=== PATIENT | female | born 1990 | race Caucasian/White ===

== ENCOUNTER 2022-05-24 00:29 | Emergency (ER) | payer OTHER ==
[2022-05-24 00:37] VITALS: TEMP 98.1
--- NOTE | 2022-05-24 04:35 | CT ---
EXAM: CT Head Without Intravenous Contrast CLINICAL HISTORY: ITS.REASON CT Reason: altered mental status TECHNIQUE: Axial computed tomography images of the head/brain without intravenous contrast. CTDI is 49.2 mGy and DLP is 1094.4 mGy-cm. This CT exam was performed using one or more of the following dose reduction techniques: automated exposure control, adjustment of the mA and/or kV according to patient size, and/or use of iterative reconstruction technique. COMPARISON: No relevant prior studies available. FINDINGS: Brain: Unremarkable. No hemorrhage. No significant white matter disease. No edema. Ventricles: Unremarkable. No ventriculomegaly. Bones/joints: Unremarkable. No acute fracture. Soft tissues: Unremarkable. Sinuses: Unremarkable as visualized. No acute sinusitis. Mastoid air cells: Unremarkable as visualized. No mastoid effusion. IMPRESSION: No acute intracranial process identified.
--- NOTE | 2022-05-24 04:52 | ED ---
General Adult HPI - General Chief complaint: Recheck/Abnormal Lab/Rx Stated complaint: Possible Overdose Time Seen by Provider: 05/24/22 00:32 Source: patient, EMS Mode of arrival: EMS Limitations: no limitations - History of Present Illness Initial comments: This patient is a 31-year-old woman sent here from [facility] to have evaluation of mental status change. Patient reportedly had gone to her room and then was seen by another client to be rolling on the floor and I was concerned she may have taken something. When I interview the patient, she denies any unauthorized medications. Patient denies symptoms but is very somnolent. -: hour(s) Severity scale (1-10): 0 Improves with: none Worsens with: none Treatments Prior to Arrival: none - Related Data Allergies Allergy/AdvReac Type Severity Reaction Status Date / Time No Known Allergies Allergy Verified 05/24/22 00:31 Review of Systems ROS Statement: Those systems with pertinent positive or pertinent negative responses have been documented in the HPI. ROS Other: All systems not noted in ROS Statement are negative. Constitutional: Denies: fever Eyes: Denies: eye pain Respiratory: Denies: cough, dyspnea Cardiovascular: Denies: chest pain, syncope Gastrointestinal: Denies: abdominal pain, vomiting, diarrhea Genitourinary: Denies: dysuria, hematuria Musculoskeletal: Denies: back pain Skin: Denies: rash Neurological: Reports: as per HPI, confusion. Denies: headache, weakness Past Medical History Additional Past Medical History / Comment(s): "tetanus" History of Any Multi-Drug Resistant Organisms: MRSA Date of last positivie culture/infection: august 2021 MDRO Source:: nose Past Psychological History: No Psychological Hx Reported Smoking Status: Current every day smoker Past Alcohol Use History: Occasional Past Drug Use History: Methamphetamine General Exam Limitations: no limitations General appearance: alert, in no apparent distress Head exam: Present: atraumatic, normocephalic Eye exam: Present: normal appearance Neck exam: Present: normal inspection Respiratory exam: Present: normal lung sounds bilaterally. Absent: respiratory distress, wheezes, rales, rhonchi, stridor Cardiovascular Exam: Present: regular rate, normal rhythm, normal heart sounds. Absent: systolic murmur, diastolic murmur, rubs, gallop GI/Abdominal exam: Present: soft Neurological exam: Present: other (Somnolent but arousable) Skin exam: Present: warm, dry, intact, normal color. Absent: rash Course Vital Signs 05/24/22 05/24/22 05/24/22 00:31 03:36 06:02 Temperature 98.1 F Pulse Rate 85 76 72 Respiratory 16 14 16 Rate Blood Pressure 115/75 118/76 112/68 O2 Sat by Pulse 98 98 98 Oximetry Disposition Clinical Impression: Altered mental status Disposition: HOME SELF-CARE Condition: Good Instructions (If sedation given, give patient instructions): Adverse Drug Reaction (ED) Is patient prescribed a controlled substance at d/c from ED?: No Referrals: None,Stated [Primary Care Provider] - 1-2 days
[2022-05-24 10:22] VITALS: BP 127/86; PULSE 68; RESP 18
[2022-05-24 12:53] LABS: Urine Alcohol Negative (Negative); Urine Barbiturate Negative (Negative); Urine Cocaine Negative (Negative); Urine Methadone Negative (Negative); Urine Opiates Negative (Negative); Urine Phencyclidine Negative (Negative)
== END 2022-05-24 10:22 | disposition home or self-care (01) ==
LOC: EC 00:29
DX: R41.82 Altered mental status, unspecified (principal); F17.200 Nicotine dependence, unspecified, uncomplicated
CPT/HCPCS: 70450; 80306; 99285

== ENCOUNTER 2022-06-03 22:25 | Emergency (ER) | payer OTHER ==
[2022-06-03 22:33] VITALS: TEMP 98.1
--- NOTE | 2022-06-04 00:12 | ED ---
Dizziness HPI - General Chief Complaint: Dizziness Stated Complaint: Fatigue, Weakness, From [place] Time Seen by Provider: 06/04/22 00:06 Source: patient, EMS Mode of arrival: EMS Limitations: no limitations - History of Present Illness Initial Comments: This patient is a 31-year-old woman sent here from [facility] with concern that she may have taken an overdose. The patient was noted to be very somnolent after the meal time there. When I interview the patient, she denies complaints. There was no injury. She is not having pain or dyspnea. MD Complaint: other -: hour(s) Timing: sudden onset History of Same: Yes History of Trauma: No Improves With: nothing Worsens With: nothing Associated Symptoms: other (Fatigue) - Related Data Previous Rx's Medication Instructions Recorded Nitrofurantoin Monohyd/M-Cryst 100 mg PO Q12HR #6 cap 06/04/22 [Macrobid] Allergies Allergy/AdvReac Type Severity Reaction Status Date / Time No Known Allergies Allergy Verified 06/03/22 22:33 Review of Systems ROS Statement: Those systems with pertinent positive or pertinent negative responses have been documented in the HPI. ROS Other: All systems not noted in ROS Statement are negative. Constitutional: Denies: fever, chills Eyes: Denies: vision change Respiratory: Denies: cough, dyspnea Cardiovascular: Denies: chest pain, palpitations, syncope Endocrine: Reports: fatigue Gastrointestinal: Denies: abdominal pain, nausea, vomiting Genitourinary: Denies: dysuria, hematuria Musculoskeletal: Denies: back pain Skin: Denies: rash Neurological: Denies: headache, weakness, numbness Past Medical History Additional Past Medical History / Comment(s): "tetanus" History of Any Multi-Drug Resistant Organisms: MRSA Date of last positivie culture/infection: august 2021 MDRO Source:: nose Past Surgical History: Cholecystectomy Past Psychological History: No Psychological Hx Reported Smoking Status: Current every day smoker Past Alcohol Use History: Occasional Past Drug Use History: Methamphetamine General Exam Limitations: no limitations General appearance: in no apparent distress, other (Patient is somnolent but pantera usable.) Head exam: Present: atraumatic, normocephalic Eye exam: Present: normal appearance, PERRL, EOMI. Absent: scleral icterus, conjunctival injection ENT exam: Present: mucous membranes dry Neck exam: Present: normal inspection, full ROM Respiratory exam: Present: normal lung sounds bilaterally. Absent: respiratory distress, wheezes, rales, rhonchi, stridor Cardiovascular Exam: Present: regular rate, normal rhythm, normal heart sounds. Absent: systolic murmur, diastolic murmur, rubs, gallop GI/Abdominal exam: Present: soft. Absent: distended, tenderness, guarding, rebound, rigid, mass Extremities exam: Present: normal inspection, normal capillary refill. Absent: pedal edema, calf tenderness Back exam: Present: normal inspection. Absent: CVA tenderness (R), CVA tenderness (L) Neurological exam: Present: altered, oriented X3, CN II-XII intact. Absent: motor sensory deficit Skin exam: Present: warm, dry, intact, normal color. Absent: rash Course Vital Signs 06/03/22 06/04/22 22:28 02:48 Temperature 98.1 F Pulse Rate 98 78 Respiratory 22 18 Rate Blood Pressure 111/68 112/70 O2 Sat by Pulse 98 97 Oximetry EKG Findings - EKG Results: EKG: interpreted by STACIA DAWKINS, sinus rhythm (Rate 95 bpm), normal axis, normal QRS, normal ST/T, no acute changes Medical Decision Making - Medical Decision Making Patient's 31-year-old woman sent here from [place] for evaluation. She is somnolent but arousable, no definite neurologic deficits. She is observed in emergency department and after sleeping she was alert and appropriately responsive, cleared to be discharged back. - Lab Data Result diagrams: 06/04/22 01:30 06/04/22 01:30 Lab Results 06/04/22 06/04/22 06/04/22 Range/Units 01:30 01:30 02:14 WBC 5.6 (3.8-10.6) k/uL RBC 3.91 (3.80-5.40) m/uL Hgb 13.0 (11.4-16.0) gm/dL Hct 38.1 (34.0-46.0) % MCV 97.4 (80.0-100.0) fL MCH 33.2 (25.0-35.0) pg MCHC 34.0 (31.0-37.0) g/dL RDW 12.6 (11.5-15.5) % Plt Count 268 (150-450) k/uL MPV 7.1 Neutrophils % 46 % Lymphocytes % 41 % Monocytes % 6 % Eosinophils % 4 % Basophils % 1 % Neutrophils # 2.6 (1.3-7.7) k/uL Lymphocytes # 2.3 (1.0-4.8) k/uL Monocytes # 0.3 (0-1.0) k/uL Eosinophils # 0.2 (0-0.7) k/uL Basophils # 0.1 (0-0.2) k/uL Sodium 136 L (137-145) mmol/L Potassium 4.4 (3.5-5.1) mmol/L Chloride 106 (98-107) mmol/L Carbon Dioxide 28 (22-30) mmol/L Anion Gap 2 mmol/L BUN 19 H (7-17) mg/dL Creatinine 0.65 (0.52-1.04) mg/dL Est GFR (CKD-EPI)AfAm >90 (>60 ml/min/1.73 sqM) Est GFR (CKD-EPI)NonAf >90 (>60 ml/min/1.73 sqM) Glucose 100 H (74-99) mg/dL Calcium 8.9 (8.4-10.2) mg/dL Total Bilirubin 0.4 (0.2-1.3) mg/dL AST 52 H (14-36) U/L ALT 47 H (4-34) U/L Alkaline Phosphatase 55 (38-126) U/L Total Protein 6.0 L (6.3-8.2) g/dL Albumin 3.6 (3.5-5.0) g/dL Urine Color Light Yellow Urine Appearance Clear (Clear) Urine pH 6.5 (5.0-8.0) Ur Specific Benton 1.009 (1.001-1.035) Urine Protein Negative (Negative) Urine Glucose (UA) Negative (Negative) Urine Ketones Negative (Negative) Urine Blood Negative (Negative) Urine Nitrite Positive H (Negative) Urine Bilirubin Negative (Negative) Urine Urobilinogen <2.0 (<2.0) mg/dL Ur Leukocyte Esterase Moderate H (Negative) Urine RBC 1 (0-5) /hpf Urine WBC 11 H (0-5) /hpf Ur Squamous Epith Cells 1 (0-4) /hpf Urine Bacteria Few H (None) /hpf Urine HCG, Qual (Not Detectd) Urine Opiates Screen Not Detected (NotDetected) Ur Oxycodone Screen Not Detected (NotDetected) Urine Methadone Screen Not Detected (NotDetected) Ur Propoxyphene Screen Not Detected (NotDetected) Ur Barbiturates Screen Not Detected (NotDetected) U Tricyclic Antidepress Not Detected (NotDetected) Ur Phencyclidine Scrn Not Detected (NotDetected) Ur Amphetamines Screen Not Detected (NotDetected) U Methamphetamines Scrn Not Detected (NotDetected) U Benzodiazepines Scrn Not Detected (NotDetected) Urine Cocaine Screen Not Detected (NotDetected) U Marijuana (THC) Screen Not Detected (NotDetected) 06/04/22 Range/Units 02:14 WBC (3.8-10.6) k/uL RBC (3.80-5.40) m/uL Hgb (11.4-16.0) gm/dL Hct (34.0-46.0) % MCV (80.0-100.0) fL MCH (25.0-35.0) pg MCHC (31.0-37.0) g/dL RDW (11.5-15.5) % Plt Count (150-450) k/uL MPV Neutrophils % % Lymphocytes % % Monocytes % % Eosinophils % % Basophils % % Neutrophils # (1.3-7.7) k/uL Lymphocytes # (1.0-4.8) k/uL Monocytes # (0-1.0) k/uL Eosinophils # (0-0.7) k/uL Basophils # (0-0.2) k/uL Sodium (137-145) mmol/L Potassium (3.5-5.1) mmol/L Chloride (98-107) mmol/L Carbon Dioxide (22-30) mmol/L Anion Gap mmol/L BUN (7-17) mg/dL Creatinine (0.52-1.04) mg/dL Est GFR (CKD-EPI)AfAm (>60 ml/min/1.73 sqM) Est GFR (CKD-EPI)NonAf (>60 ml/min/1.73 sqM) Glucose (74-99) mg/dL Calcium (8.4-10.2) mg/dL Total Bilirubin (0.2-1.3) mg/dL AST (14-36) U/L ALT (4-34) U/L Alkaline Phosphatase (38-126) U/L Total Protein (6.3-8.2) g/dL Albumin (3.5-5.0) g/dL Urine Color Urine Appearance (Clear) Urine pH (5.0-8.0) Ur Specific Benton (1.001-1.035) Urine Protein (Negative) Urine Glucose (UA) (Negative) Urine Ketones (Negative) Urine Blood (Negative) Urine Nitrite (Negative) Urine Bilirubin (Negative) Urine Urobilinogen (<2.0) mg/dL Ur Leukocyte Esterase (Negative) Urine RBC (0-5) /hpf Urine WBC (0-5) /hpf Ur Squamous Epith Cells (0-4) /hpf Urine Bacteria (None) /hpf Urine HCG, Qual Not Detected (Not Detectd) Urine Opiates Screen (NotDetected) Ur Oxycodone Screen (NotDetected) Urine Methadone Screen (NotDetected) Ur Propoxyphene Screen (NotDetected) Ur Barbiturates Screen (NotDetected) U Tricyclic Antidepress (NotDetected) Ur Phencyclidine Scrn (NotDetected) Ur Amphetamines Screen (NotDetected) U Methamphetamines Scrn (NotDetected) U Benzodiazepines Scrn (NotDetected) Urine Cocaine Screen (NotDetected) U Marijuana (THC) Screen (NotDetected) Disposition Clinical Impression: Urinary tract infection, Altered mental status Disposition: HOME SELF-CARE Condition: Good Instructions (If sedation given, give patient instructions): Urinary Tract Infection in Women (ED) Prescriptions: Nitrofurantoin Monohyd/M-Cryst [Macrobid] 100 mg PO Q12HR #6 cap Is patient prescribed a controlled substance at d/c from ED?: No Referrals: None,Stated [Primary Care Provider] - 1-2 days
[2022-06-04 01:38] LABS: Basophils # (A) 0.1 k/uL (0-0.2); Basophils % (A) 1 %; Eosinophils # (A) 0.2 k/uL (0-0.7); Eosinophils % (A) 4 %; HCT 38.1 % (34.0-46.0); Lymphocytes # (A) 2.3 k/uL (1.0-4.8); Lymphocytes % (A) 41 %; MCH 33.2 pg (25.0-35.0); MCV 97.4 fL (80.0-100.0); Mean Platelet Volume 7.1; Monocytes # (A) 0.3 k/uL (0-1.0); Monocytes % (A) 6 %; Neutrophils # (A) 2.6 k/uL (1.3-7.7); Neutrophils % (A) 46 %; Platelet Count 268 k/uL (150-450); RBC 3.91 m/uL (3.80-5.40); RDW 12.6 % (11.5-15.5); WBC 5.6 k/uL (3.8-10.6)
[2022-06-04 01:58] LABS: ALT 47 U/L (4-34); AST 52 U/L (14-36); African American GFR (CKD) >90 (>60 ml/min/1.73 sqM); Albumin 3.6 g/dL (3.5-5.0); Alkaline Phosphatase 55 U/L (38-126); Anion Gap 2 mmol/L; Blood Urea Nitrogen 19 mg/dL (7-17); Calcium 8.9 mg/dL (8.4-10.2); Carbon Dioxide 28 mmol/L (22-30); Chloride 106 mmol/L (98-107); Glucose 100 mg/dL (74-99); Non-African American GFR(CKD) >90 (>60 ml/min/1.73 sqM); Potassium 4.4 mmol/L (3.5-5.1); Sodium 136 mmol/L (137-145); Total Bilirubin 0.4 mg/dL (0.2-1.3)
[2022-06-04 02:49] VITALS: BP 112/70; PULSE 78; RESP 18
[2022-06-04 02:51] LABS: Appearance,Urine Clear (Clear); Bacteria,Urine Few /hpf; Bilirubin,Urine Negative (Negative); Blood,Urine Negative (Negative); Color,Urine Light Yellow; Glucose,Urine (UA) Negative (Negative); Ketones,Urine Negative (Negative); Leukocyte Esterase,Urine Moderate (Negative); Nitrite,Urine Positive (Negative); PH, Urine 6.5 (5.0-8.0); Protein,Urine Negative (Negative); RBC,Urine 1 /hpf (0-5); Specific Gravity,Urine 1.009 (1.001-1.035); Squamous Epithelial Cell,Urine 1 /hpf (0-4); Urobilinogen,Urine <2.0 mg/dL (<2.0); WBC,Urine 11 /hpf (0-5)
[2022-06-04 02:52] LABS: Amphetamine Screen,Urine Not Detected (NotDetected); Barbiturate Screen,Urine Not Detected (NotDetected); Benzodiazepines Screen,Urine Not Detected (NotDetected); Cocaine Screen,Urine Not Detected (NotDetected); Methadone Screen, Urine Not Detected (NotDetected); Opiate Screen,Urine Not Detected (NotDetected); Oxycodone Screen, Urine Not Detected (NotDetected); Phencyclidine Screen,Urine Not Detected (NotDetected); Tricyclic Antidepressant,Urine Not Detected (NotDetected); Urn Cannabinoid Scrn Not Detected (NotDetected)
[2022-06-04] MEDS ORDERED: NITROFURANTOIN MONOHYD/M-CRYST 100 MG CAP PO STA (04:24)
== END 2022-06-04 06:18 | disposition home or self-care (01) ==
LOC: EC 22:25
DX: N39.0 Urinary tract infection, site not specified (principal); R41.82 Altered mental status, unspecified; F17.200 Nicotine dependence, unspecified, uncomplicated
CPT/HCPCS: 36415; 80053; 80306; 81001; 81025; 85025; 93005; 99285

== ENCOUNTER → 2022-11-25 | Outpatient (CLI) | payer OTHER ==
--- NOTE | 2022-11-25 14:23 | XR ---
EXAMINATION TYPE: XR wrist complete RT DATE OF EXAM: 11/25/2022 COMPARISON: None HISTORY: Pain and sprain felt pop TECHNIQUE: 4 view right wrist FINDINGS: No acute fracture or dislocation is evident. Joint spaces are preserved. Soft tissues are n ormal. If there is pain at the anatomic snuff box, nuclear medicine bone scan could be performed for additio nal evaluation. Follow up exams can be performed 7-10 days from acute trauma for continued pain. IMPRESSION: 1. No acute osseous abnormality right wrist
--- NOTE | 2022-11-25 14:24 | XR ---
EXAMINATION TYPE: XR hand complete RT DATE OF EXAM: 11/25/2022 COMPARISON: None HISTORY: Sprain, pain TECHNIQUE: 3 view right hand FINDINGS: No acute fracture or dislocation is evident. Joint spaces are preserved. Soft tissues are n ormal. Follow up exams can be performed 7-10 days from acute trauma for continued pain. IMPRESSION: 1. No acute osseous abnormality right hand
== END | disposition home or self-care (01) ==
LOC: RADXRMAIN 14:03
PROVIDERS: ATTEND Emergency Medicine
DX: S63.501A Unspecified sprain of right wrist, initial encounter (principal); S63.8X1A Sprain of other part of right wrist and hand, initial encounter

== ENCOUNTER → 2022-12-02 | Outpatient (CLI) | payer OTHER ==
--- NOTE | 2022-12-02 12:24 | XR ---
EXAMINATION TYPE: XR hand complete RT, XR wrist complete RT DATE OF EXAM: 12/02/2022 12:08 PM INDICATION: Patient age:Female; 32 years old; Reason for study: S63.501D sprain right wrist; COMPARISON: None TECHNIQUE: Frontal, lateral and oblique views of the right hand and wrist were obtained. Additional n avicular view of the wrist. FINDINGS: Normal alignment of the visualized joints. No acute osseous pathology is identified. No e vidence of soft tissue swelling. IMPRESSION: No acute osseous pathology.
== END | disposition home or self-care (01) ==
LOC: RADXRMAIN 11:49
PROVIDERS: ATTEND Emergency Medicine
DX: S63.501D Unspecified sprain of right wrist, subsequent encounter (principal); R20.9 Unspecified disturbances of skin sensation

== ENCOUNTER → 2022-12-21 | Outpatient (CLI) | payer OTHER ==
--- NOTE | 2022-12-23 03:16 | MR ---
EXAMINATION TYPE: MR wrist RT wo con DATE OF EXAM: 12/21/2022 COMPARISON: None HISTORY: Rt wrist pain, sprain Multiplanar multiecho imaging of the right wrist performed with no contrast. On the T1 images there is abnormal decreased signal throughout most of the lunate bone. This has kristen esponding increased signal on the T2 image. No fracture line seen. There is some mild increased fluid signal in the distal scaphoid bone adjacent to the scaphoid trapezium joint. There is mild soft tiss ue edema on the dorsum of the carpus. The flexor and extensor tendons are intact. Distal radius and u sterile preparation technician appear intact. There is mild narrowing of the radiocarpal joint space. There is mild subcutaneous edema on the anterior aspect of the carpus. The triangular cartilage appears intact. There is mild i ncreased joint fluid in the carpus which is more noticeable at the fourth and fifth carpometacarpal j oints. This is consistent with some degree of synovitis. IMPRESSION: There is diffuse edema in the lunate bone that could relate to avascular necrosis or significant bon e bruise. There is some edema in the distal scaphoid bone consistent with bone bruise and osteoarthri tis. Minimal bone edema seen in the proximal capitate also consistent with arthritic disease. No frac ture seen. Soft tissue edema on the anterior posterior aspect of the carpus.
== END | disposition home or self-care (01) ==
LOC: RADMRIMAIN 06:03
PROVIDERS: ATTEND Emergency Medicine
DX: S63.501D Unspecified sprain of right wrist, subsequent encounter (principal); R60.0 Localized edema; M79.641 Pain in right hand; R20.9 Unspecified disturbances of skin sensation

== ENCOUNTER → 2023-03-17 | Outpatient (CLI) | payer OTHER ==
--- NOTE | 2023-03-17 11:00 | XR ---
EXAMINATION TYPE: XR Hip Complete RT DATE OF EXAM: 03/17/2023 10:55 AM INDICATION: Patient age:Female; 32 years old; Reason for study: S30.0XXD R hip pain;. COMPARISON: None. TECHNIQUE: The right hip was examined in the frontal and lateral projections and a AP pelvis. FINDINGS: No evidence for acute process, joint dislocation or significant soft tissue swelling. IMPRESSION: No acute process.
== END | disposition home or self-care (01) ==
LOC: RADXRMAIN 10:20
PROVIDERS: ATTEND Emergency Medicine
DX: S30.0XXD Contusion of lower back and pelvis, subsequent encounter (principal); Y99.9 Unspecified external cause status
CPT/HCPCS: 73502

== ENCOUNTER 2023-04-01 21:35 | Emergency (ER) | payer BC, OTHER ==
[2023-04-01] MEDS ORDERED: SODIUM CHLORIDE 0.9% 1,000 ML IV STA (23:16)
[2023-04-01] MEDS ORDERED: ONDANSETRON 4 MG/2 ML VIAL IVP STA (23:16)
[2023-04-01] MEDS ORDERED: KETOROLAC 15 MG/ML 1 ML VIAL IVP STA (23:23)
[2023-04-01 23:54] LABS: ALT 17 U/L (4-34); AST 22 U/L (14-36); African American GFR (CKD) >90 (>60 ml/min/1.73 sqM); Albumin 3.9 g/dL (3.5-5.0); Alkaline Phosphatase 66 U/L (38-126); Anion Gap 10 mmol/L; Blood Urea Nitrogen 13 mg/dL (7-17); Calcium 8.2 mg/dL (8.4-10.2); Carbon Dioxide 22 mmol/L (22-30); Chloride 104 mmol/L (98-107); Glucose 124 mg/dL (74-99); Lipase 85 U/L (23-300); Magnesium 2.1 mg/dL (1.6-2.3); Non-African American GFR(CKD) >90 (>60 ml/min/1.73 sqM); Potassium 3.6 mmol/L (3.5-5.1); Sodium 136 mmol/L (137-145); Total Bilirubin 1.9 mg/dL (0.2-1.3); Total Protein 6.5 g/dL (6.3-8.2)
[2023-04-02 00:11] LABS: Basophils % (A) 0 %; Eosinophils # (A) 0.1 k/uL (0-0.7); Eosinophils % (A) 1 %; HCT 39.4 % (34.0-46.0); HGB 13.9 gm/dL (11.4-16.0); Lymphocytes # (A) 0.9 k/uL (1.0-4.8); Lymphocytes % (A) 22 %; MCH 31.9 pg (25.0-35.0); MCHC 35.2 g/dL (31.0-37.0); MCV 90.7 fL (80.0-100.0); Mean Platelet Volume 7.5; Monocytes # (A) 0.4 k/uL (0-1.0); Monocytes % (A) 8 %; Neutrophils # (A) 2.9 k/uL (1.3-7.7); Neutrophils % (A) 66 %; Platelet Count 247 k/uL (150-450); RBC 4.34 m/uL (3.80-5.40); RDW 12.2 % (11.5-15.5); WBC 4.4 k/uL (3.8-10.6)
--- NOTE | 2023-04-02 00:19 | CT ---
EXAM: CT Abdomen and Pelvis With Intravenous Contrast CLINICAL HISTORY: ITS.REASON CT Reason: LLQ pain TECHNIQUE: Axial computed tomography images of the abdomen and pelvis with intravenous contrast. CTDI is 17.3, 11.8 mGy and DLP is 1100, 453.8 mGy- cm. This CT exam was performed using one or more of the following dose reduction techniques: automated exposure control, adjustment of the mA and/or kV according to patient size, and/or use of iterative reconstruction technique. COMPARISON: No relevant prior studies available. FINDINGS: Lung bases: Unremarkable. No mass. No consolidation. ABDOMEN: Liver: Unremarkable. No mass. Gallbladder and bile ducts: Cholecystectomy. No ductal dilation. Pancreas: Unremarkable. No mass. No ductal dilation. Spleen: Mild splenomegaly. Adrenals: Unremarkable. No mass. Kidneys and ureters: Unremarkable. No solid mass. No hydronephrosis. Stomach and bowel: Some mildly thickened small bowel loops. No obstruction. PELVIS: Appendix: Normal appendix. Bladder: Unremarkable. No mass. Reproductive: Unremarkable as visualized. ABDOMEN and PELVIS: Intraperitoneal space: Unremarkable. No free air. No significant fluid collection. Bones/joints: No acute fracture. No dislocation. Soft tissues: Unremarkable. Vasculature: Unremarkable. No abdominal aortic aneurysm. Lymph nodes: Unremarkable. No enlarged lymph nodes. IMPRESSION: Some mildly thickened small bowel loops. May represent enteritis.
[2023-04-02] MEDS ORDERED: CALCIUM CARBONATE 500 MG CHEWABLE PO STA (00:27)
[2023-04-02] MEDS ORDERED: AMOXIC-POT CLAV 875-125MG 1 EACH TAB PO STA (00:30)
--- NOTE | 2023-04-02 00:34 | ED ---
General Adult HPI - General Chief complaint: Nausea/Vomiting/Diarrhea Stated complaint: Dehydrated Time Seen by Provider: 04/01/23 23:15 Source: patient Mode of arrival: ambulatory - History of Present Illness Initial comments: Patient is a 32-year-old female who presents the emergency department for diarrhea. Patient reports 10-15 episodes of diarrhea since last night, states it is very watery no blood. No history of C. diff. No recent antibiotic use or travel. She feels very dehydrated. Patient has pain in her left lower abdomen. She feels very nauseous nor vomiting. No fever or chills. No burning with urination, blood in urine, vaginal bleeding, vaginal discharge. Denies chance of . She denies alcohol and drug use. - Related Data Previous Rx's Medication Instructions Recorded Amoxic-Pot Clav 875-125Mg 1 tab PO BID 10 Days #20 tab 04/02/23 [Augmentin 875-125] Dicyclomine [Bentyl] 20 mg PO TID #30 tablet 04/02/23 Ondansetron Odt [Zofran Odt] 4 mg PO Q8HR PRN #10 tab 04/02/23 Allergies Allergy/AdvReac Type Severity Reaction Status Date / Time No Known Allergies Allergy Verified 04/01/23 21:41 Review of Systems ROS Statement: Those systems with pertinent positive or pertinent negative responses have been documented in the HPI. ROS Other: All systems not noted in ROS Statement are negative. Past Medical History Additional Past Medical History / Comment(s): "tetanus" History of Any Multi-Drug Resistant Organisms: MRSA Date of last positivie culture/infection: august 2021 MDRO Source:: nose Past Surgical History: Cholecystectomy Past Psychological History: No Psychological Hx Reported Smoking Status: Current every day smoker Past Alcohol Use History: Occasional Past Drug Use History: Methamphetamine General Exam General appearance: alert, in no apparent distress Eye exam: Present: normal appearance, PERRL, EOMI. Absent: scleral icterus, conjunctival injection, periorbital swelling ENT exam: Present: mucous membranes moist Respiratory exam: Present: normal lung sounds bilaterally. Absent: respiratory distress, wheezes, rales, rhonchi, stridor Cardiovascular Exam: Present: normal rhythm, tachycardia, normal heart sounds. Absent: regular rate, systolic murmur, diastolic murmur, rubs, gallop, clicks GI/Abdominal exam: Present: soft, tenderness (mild LLQ), normal bowel sounds. Absent: distended, guarding, rebound, rigid Neurological exam: Present: alert, oriented X3, CN II-XII intact Psychiatric exam: Present: normal affect, normal mood Skin exam: Present: warm, dry, intact, normal color. Absent: rash Course Vital Signs 04/01/23 04/02/23 21:38 00:40 Temperature 98.1 F 98.0 F Pulse Rate 113 H 84 Respiratory 18 16 Rate Blood Pressure 117/76 119/69 O2 Sat by Pulse 96 97 Oximetry Medical Decision Making - Medical Decision Making Was pt. sent in by a medical professional or institution (, PA, TRIPPER, urgent care, hospital, or [facility]...) When possible be specific @ -No Did you speak to anyone other than the patient for history (EMS, parent, family, police, friend...)? What history was obtained from this source @ -No Did you review nursing and triage notes (agree or disagree)? Why? @ -I reviewed and agree with nursing and triage notes Were old charts reviewed (outside hosp., previous admission, EMS record, old EKG, old radiological studies, urgent care reports/EKG's, [facility] records)? Report findings @ -No old charts were reviewed Differential Diagnosis (chest pain, altered mental status, abdominal pain women, abdominal pain men, vaginal bleeding, weakness, fever, dyspnea, syncope, headache, dizziness, GI bleed, back pain, seizure, CVA, palpatations, mental health)? @ Differential Abdominal Pain Women: Appendicitis, Cholecystitis, diverticulosis, ischemic bowel, pancreatitis, hepatitis, UTI, gastroenteritis, AAA, incarcerated hernia, bowel obstruction, constipation, inflammatory bowel, hepatitis, peptic ulcer disease, splenic infarction, perforated viscus, vulvitis, ovarian torsion, PID, kidney stone, placenta abruption, this is not meant to be an all-inclusive list EKG interpreted by me (3pts min.). @ -As above X-rays interpreted by me (1pt min.). @ -None done CT interpreted by me (1pt min.). @ -Yes, CT of abdomen and pelvis shows suspected enteritis U/S interpreted by me (1pt. min.). @ -None done What testing was considered but not performed or refused? (CT, X-rays, U/S, labs)? Why? @ -None What meds were considered but not given or refused? Why? @ -None Did you discuss the management of the patient with other professionals (professionals i.e. , PA, TRIPPER, lab, RT, psych nurse, social media designer, ssrs developer, teacher, liaison officer, correctional casework specialist)? Give summary @ -No Was smoking cessation discussed for >3mins.? @ -No Was critical care preformed (if so, how long)? @ -No Were there social determinants of health that impacted care today? How? (Homelessness, low income, unemployed, alcoholism, drug addiction, transportation, low edu. Level, literacy, decrease access to med. care, detention, rehab)? @ -No Was there de-escalation of care discussed even if they declined (Discuss DNR or withdrawal of care, Hospice)? DNR status @ -No What co-morbidities impacted this encounter? (DM, HTN, Smoking, COPD, CAD, Cancer, CVA, ARF, Chemo, Hep., AIDS, mental health diagnosis, sleep apnea, morbid obesity)? @ -None Was patient admitted / discharged? Hospital course, mention meds given and route, prescriptions, significant lab abnormalities, going to OR and other pertinent info. @ -Patient presenting for abdominal pain and diarrhea. She appears dehydrated. She is afebrile. Laboratory studies obtained. There is no leukocytosis. Other laboratory studies are relatively unremarkable. CT of abdomen and pelvis shows suspected enteritis. Patient given large fluid bolus, nausea, pain medication. She is feeling better reevaluation. Her tachycardia is resolved. Results discussed with patient. Symptoms likely secondary to viral etiology however I will treat for possible bacterial origin. Patient will be discharged with Augmentin, fentanyl, Zofran. She is discharged in stable condition Undiagnosed new problem with uncertain prognosis? @ -No Drug Therapy requiring intensive monitoring for toxicity (Heparin, Nitro, Insulin, Cardizem)? @ -No Were any procedures done? @ -No Diagnosis/symptom? @ -Enteritis Acute, or Chronic, or Acute on Chronic? @ -Acute Uncomplicated (without systemic symptoms) or Complicated (systemic symptoms)? @ Uncomplicated Side effects of treatment? @ -No Exacerbation, Progression, or Severe Exacerbation? @ -No Poses a threat to life or bodily function? How? (Chest pain, [place], [place], pneumonia, PE, COPD, DKA, ARF, appy, cholecystitis, CVA, Diverticulitis, Homicidal, Suicidal, threat to staff... and all critical care pts) @ -No Dr. Burrell is my attending - Lab Data Result diagrams: 04/01/23 23:31 04/01/23 23:31 Lab Results 04/01/23 04/01/23 Range/Units 23:31 23:31 WBC 4.4 (3.8-10.6) k/uL RBC 4.34 (3.80-5.40) m/uL Hgb 13.9 (11.4-16.0) gm/dL Hct 39.4 (34.0-46.0) % MCV 90.7 (80.0-100.0) fL MCH 31.9 (25.0-35.0) pg MCHC 35.2 (31.0-37.0) g/dL RDW 12.2 (11.5-15.5) % Plt Count 247 (150-450) k/uL MPV 7.5 Neutrophils % 66 % Lymphocytes % 22 % Monocytes % 8 % Eosinophils % 1 % Basophils % 0 % Neutrophils # 2.9 (1.3-7.7) k/uL Lymphocytes # 0.9 L (1.0-4.8) k/uL Monocytes # 0.4 (0-1.0) k/uL Eosinophils # 0.1 (0-0.7) k/uL Basophils # 0.0 (0-0.2) k/uL Sodium 136 L (137-145) mmol/L Potassium 3.6 (3.5-5.1) mmol/L Chloride 104 (98-107) mmol/L Carbon Dioxide 22 (22-30) mmol/L Anion Gap 10 mmol/L BUN 13 (7-17) mg/dL Creatinine 0.75 (0.52-1.04) mg/dL Est GFR (CKD-EPI)AfAm >90 (>60 ml/min/1.73 sqM) Est GFR (CKD-EPI)NonAf >90 (>60 ml/min/1.73 sqM) Glucose 124 H (74-99) mg/dL Calcium 8.2 L (8.4-10.2) mg/dL Magnesium 2.1 (1.6-2.3) mg/dL Total Bilirubin 1.9 H (0.2-1.3) mg/dL AST 22 (14-36) U/L ALT 17 (4-34) U/L Alkaline Phosphatase 66 (38-126) U/L Total Protein 6.5 (6.3-8.2) g/dL Albumin 3.9 (3.5-5.0) g/dL Lipase 85 (23-300) U/L Disposition Clinical Impression: Enteritis Disposition: HOME SELF-CARE Condition: Good Instructions (If sedation given, give patient instructions): Gastroenteritis (ED) Additional Instructions: Take medication as directed. Increase fluid intake. Please follow-up with your primary care provider in 1-2 days. Return to the emergency department if you experience new, concerning, or worsening symptoms. Prescriptions: Amoxic-Pot Clav 875-125Mg [Augmentin 875-125] 1 tab PO BID 10 Days #20 tab Dicyclomine [Bentyl] 20 mg PO TID #30 tablet Ondansetron Odt [Zofran Odt] 4 mg PO Q8HR PRN #10 tab PRN Reason: Nausea Is patient prescribed a controlled substance at d/c from ED?: No Referrals: Chente Martinez MD [Primary Care Provider] - 1-2 days
[2023-04-02 00:41] VITALS: BP 119/69; PULSE 84; RESP 16; TEMP 98
== END 2023-04-02 00:43 | disposition home or self-care (01) ==
LOC: EC 21:35
DX: K52.9 Noninfective gastroenteritis and colitis, unspecified (principal); Z90.49 Acquired absence of other specified parts of digestive tract; F17.200 Nicotine dependence, unspecified, uncomplicated
CPT/HCPCS: 36415; 80053; 83690; 83735; 85025; 74177; 99284; 96374; 96375; 96361; J2405; J1885; Q9967

== ENCOUNTER 2023-04-16 06:49 | Emergency (ER) | payer BC, OTHER ==
[2023-04-16 06:57] VITALS: BP 155/90; PULSE 102; RESP 18; TEMP 98.8
[2023-04-16] MEDS ORDERED: HYDROmorphone 0.5 MG/0.5 ML SYRINGE IM STA ×2 (07:16→08:18)
--- NOTE | 2023-04-16 07:26 | ED ---
Extremity Problem HPI - General Chief complaint: Extremity Injury, Upper Stated complaint: Post Op Complication Time Seen by Provider: 04/16/23 07:05 Source: patient, RN notes reviewed Mode of arrival: ambulatory Limitations: no limitations - History of Present Illness Initial comments: This is a 32-year-old female who presents to the emergency department for problems with her nerve block catheter. She had a right radial shortening procedure [address] Gonzales due to Kienbck's disease. She had a nerve block catheter placed, which was very effective. However her cat chewed through this this morning. Currently complaining of severe pain. She was given a prescription for hydrocodone, however she has not yet taken any of this. Denies any fevers, chills, sore throat, cough, dyspnea, chest pain, palpitations, abdominal pain, nausea, vomiting, diarrhea, back pain, or headaches. - Related Data Previous Rx's Medication Instructions Recorded Amoxic-Pot Clav 875-125Mg 1 tab PO BID 10 Days #20 tab 04/02/23 [Augmentin 875-125] Dicyclomine [Bentyl] 20 mg PO TID #30 tablet 04/02/23 Ondansetron Odt [Zofran Odt] 4 mg PO Q8HR PRN #10 tab 04/02/23 Ketorolac [Toradol] 10 mg PO Q6HR PRN #12 tab 04/16/23 Allergies Allergy/AdvReac Type Severity Reaction Status Date / Time No Known Allergies Allergy Verified 04/01/23 21:41 Review of Systems ROS Statement: Those systems with pertinent positive or pertinent negative responses have been documented in the HPI. ROS Other: All systems not noted in ROS Statement are negative. Past Medical History Additional Past Medical History / Comment(s): "tetanus" History of Any Multi-Drug Resistant Organisms: MRSA Date of last positivie culture/infection: august 2021 MDRO Source:: nose Past Surgical History: Cholecystectomy Past Psychological History: No Psychological Hx Reported Smoking Status: Current every day smoker Past Alcohol Use History: Occasional Past Drug Use History: Methamphetamine General Exam Limitations: no limitations General appearance: alert, in distress Head exam: Present: atraumatic, normocephalic, normal inspection Respiratory exam: Present: normal lung sounds bilaterally. Absent: respiratory distress, wheezes, rales, rhonchi, stridor Cardiovascular Exam: Present: regular rate, normal rhythm, normal heart sounds. Absent: systolic murmur, diastolic murmur, rubs, gallop, clicks Neurological exam: Present: alert, oriented X3, CN II-XII intact Psychiatric exam: Present: normal affect, normal mood Skin exam: Present: warm, dry, intact, normal color. Absent: rash Course Vital Signs 04/16/23 06:54 Temperature 98.8 F Pulse Rate 102 H Respiratory 18 Rate Blood Pressure 155/90 O2 Sat by Pulse 97 Oximetry Medical Decision Making - Medical Decision Making This is a 32-year-old female who presents to the emergency department for problems with her nerve block catheter. Was pt. sent in by a medical professional or institution? @ -No Did you speak to anyone other than the patient for history? @ -No Did you review nursing and triage notes? @ -Yes, and I agree, it is accurate with regards to the patient's symptoms. Were old charts reviewed? @ -No Differential Diagnosis? @ -Not applicable EKG interpreted by me (3pts min.)? @ -Not obtained X-rays interpreted by me (1pt min.)? @ -Not obtained CT interpreted by me (1pt min.)? @ -Not obtained U/S interpreted by me (1pt. min.)? @ -Not obtained What testing was considered but not performed? (CT, X-rays, U/S, labs)? Why? @ -None What meds were considered but not given? Why? @ -None Did you discuss the management of the patient with other professionals? @ -Yes, HENOK at [facility] who advised removing the nerve block catheter. Did you reconcile home meds? @ -No Was smoking cessation discussed for >3mins.? @ -No Was critical care preformed (if so, how long)? @ -No Were there social determinants of health that impacted care today? How? (Homelessness, low income, unemployed, alcoholism, drug addiction, transportation, low edu. Level, literacy, decrease access to med. care, retirement, rehab)? @ -No Was there de-escalation of care discussed even if they declined? (Discuss DNR or withdrawal of care, Hospice)? @ -No What co-morbidities impacted this encounter? (DM, HTN, Smoking, COPD, CAD, Cancer, CVA, Hep., AIDS, mental health diagnosis, sleep apnea, morbid obesity)? @ -Kienbck's disease Was patient admitted / discharged? @ -Discharged. Case discussed with orthopedics, who advised removing the nerve block catheter. This was removed very easily without any discomfort to the patient. Pain was controlled in the emergency department. Prescription for Toradol provided with dosing instructions reviewed. Patient is instructed to take the Toradol with Tylenol if needed and avoid any other [id number] anti-inflammatories such as ibuprofen with the Toradol. She will also take the hydrocodone she has home as needed for breakthrough pain. Advised she contact orthopedics herself regarding this problem as well in the event they want to see her for a sooner follow-up appointment. Undiagnosed new problem with uncertain prognosis? @ -None Drug Therapy requiring intensive monitoring for toxicity (Heparin, Nitro, Insulin, Cardizem)? @ -None Were any procedures done? @ -Nerve block catheter removal Diagnosis/symptom? @ -S/p orthopedic surgery Acute, or Chronic, or Acute on Chronic? @ -Acute Uncomplicated (without systemic symptoms) or Complicated (systemic symptoms)? @ -Uncomplicated Side effects of treatment? @ -None Exacerbation, Progression, or Severe Exacerbation] @ -Not applicable Poses a threat to life or bodily function? @ -No Return precautions reviewed in depth, the patient is instructed to return to the emergency department with any new, worsening, or concerning symptoms. Patient verbalized understanding. This case was discussed in detail with the attending ED physician, Dr. Watts. Presentation, findings, and treatment plan discussed in detail as well. Disposition Clinical Impression: History of orthopedic surgery Disposition: HOME SELF-CARE Additional Instructions: Return to the emergency department with any new, worsening, or concerning symptoms. Take the hydrocodone as prescribed by orthopedics if needed. You can take the Toradol up to every 6 hours as needed for pain relief. If you choose to take this, do not take it with any other anti-inflammatories such as the Mobic. Take one or the other. You may take it with Tylenol. Contact orthopedics regarding this issue to see if they want to see you for a sooner follow-up appointment. Prescriptions: Ketorolac [Toradol] 10 mg PO Q6HR PRN #12 tab PRN Reason: Pain Is patient prescribed a controlled substance at d/c from ED?: No Referrals: Chente Martinez MD [Primary Care Provider] - 1-2 days
[2023-04-16] MEDS ORDERED: KETOROLAC 15 MG/ML 1 ML VIAL IM STA (08:18)
== END 2023-04-16 08:35 | disposition home or self-care (01) ==
LOC: EC 06:49
DX: Z47.89 Encounter for other orthopedic aftercare (principal); F17.200 Nicotine dependence, unspecified, uncomplicated; Z90.49 Acquired absence of other specified parts of digestive tract
CPT/HCPCS: 99283; 96372 ×2; J1885; J1170

== ENCOUNTER 2024-04-23 14:47 | Emergency (ER) | payer BC, OTHER ==
--- NOTE | 2024-04-23 15:23 | ED ---
ENT HPI <Jeri Gao - Last Filed: 04/23/24 15:21> <Sebastien Tate - Last Filed: 04/23/24 20:53> - General Stated complaint: poss ear infection Time Seen by Provider: 04/23/24 15:21 - History of Present Illness Initial comments: Quick [id number] female presenting to the ER with chief complaint of left otalgia x 1 day. States she was sent by urgent care due to narrowing of the ear canal and told her they were concerned that the infection has spread to her neck. Patient is able to swallow. (Jeri Gao) 33-year-old female presenting to the ED with complaints of left ear pain. Has been ongoing for the last 2 days. Associated fever and chills. Reports last night started to have pain going down to the left side of her neck and reports that this also feels swollen. No shortness of breath. Reports that she is still able to swallow however is having difficulty secondary to pain. Denies drooling. For this, [facility] who sent her here for further evaluation due to concern of neck infection. No history of IV drug use. No other complaints at this time. (Sebastien Tate) - Related Data Previous Rx's Medication Instructions Recorded Amoxic-Pot Clav 875-125Mg 1 tab PO BID 10 Days #20 tab 04/02/23 [Augmentin 875-125] Dicyclomine [Bentyl] 20 mg PO TID #30 tablet 04/02/23 Ondansetron Odt [Zofran Odt] 4 mg PO Q8HR PRN #10 tab 04/02/23 Ketorolac [Toradol] 10 mg PO Q6HR PRN #12 tab 04/16/23 Amoxic-Pot Clav 875-125Mg 1 tab PO Q12HR 7 Days #14 tab 04/23/24 [Augmentin 875-125] Allergies Allergy/AdvReac Type Severity Reaction Status Date / Time No Known Allergies Allergy Verified 04/23/24 15:36 Review of Systems ROS Other: All systems not noted in ROS Statement are negative. <Jeri Gao - Last Filed: 04/23/24 15:21> ROS Other: All systems not noted in ROS Statement are negative. <Sebastien Tate - Last Filed: 04/23/24 20:53> ROS Statement: Those systems with pertinent positive or pertinent negative responses have been documented in the HPI. Past Medical History Additional Past Medical History / Comment(s): "tetanus" History of Any Multi-Drug Resistant Organisms: MRSA Date of last positivie culture/infection: august 2021 MDRO Source:: nose Past Surgical History: Cholecystectomy Past Psychological History: No Psychological Hx Reported Smoking Status: Current every day smoker Past Alcohol Use History: Occasional Past Drug Use History: Methamphetamine <Jeri Gao - Last Filed: 04/23/24 15:21> General Exam <Jeri Gao - Last Filed: 04/23/24 15:21> General appearance: alert, in no apparent distress ENT exam: Present: TM's normal bilaterally (Right TM largely unremarkable. Left TM external canal does appear swollen however exam difficult secondary to patient compliance. Left external ear warmth erythema and tenderness to palpation. No mastoid process tenderness to palpation.), other (Unable to fully open mouth secondary to pain. Tolerating secretions. No stridor.) Respiratory exam: Present: normal lung sounds bilaterally Cardiovascular Exam: Present: regular rate GI/Abdominal exam: Present: soft, normal bowel sounds. Absent: distended, tenderness, guarding, rebound, rigid Extremities exam: Present: normal inspection Back exam: Present: normal inspection Neurological exam: Present: alert, oriented X3 Skin exam: Present: warm, dry <Sebastien Tate - Last Filed: 04/23/24 20:53> - General Exam Comments Initial Comments: Visual Physical Exam General: Well-appearing, nontoxic, no acute distress. Head: Normocephalic, atraumatic Eyes: PERRLA, EOMI ENT: Airway patent Chest: Nonlabored breathing Skin: No visual rash, normal skin tone Neuro: Alert and oriented 3 Musculoskeletal: No gross abnormalities (Jeri Gao) Course Vital Signs 04/23/24 04/23/24 04/23/24 15:32 16:56 19:00 Temperature 99.0 F 98.5 F 98.4 F Pulse Rate 93 90 69 Respiratory 18 18 16 Rate Blood Pressure 161/96 157/95 109/68 O2 Sat by Pulse 98 100 100 Oximetry Medical Decision Making <Jeri Gao - Last Filed: 04/23/24 15:21> - Lab Data Result diagrams: 04/23/24 17:14 04/23/24 17:14 <Sebastien Tate - Last Filed: 04/23/24 20:53> - Medical Decision Making I completed the quick note portion of this chart signed Jeri Gao PA-C (Jeri Gao) Was pt. sent in by a medical professional or institution (, PA, [employer], urgent care, hospital, or shelter...) When possible be specific @ -[facility] Did you speak to anyone other than the patient for history (EMS, parent, family, police, friend...)? What history was obtained from this source @ -No Did you review nursing and triage notes (agree or disagree)? Why? @ -I reviewed and agree with nursing and triage notes Were old charts reviewed (outside hosp., previous admission, EMS record, old EKG, old radiological studies, urgent care reports/EKG's, shelter records)? Report findings @ -No old charts were reviewed Differential Diagnosis (chest pain, altered mental status, abdominal pain women, abdominal pain men, vaginal bleeding, weakness, fever, dyspnea, syncope, heada rama, dizziness, GI bleed, back pain, seizure, CVA, palpatations, mental health, musculoskeletal)? @ -Otitis externa, malignant otitis externa, Ruy's angina, meningitis, retropharyngeal abscess, parapharyngeal abscess. This not meant to be an all- inclusive list. EKG interpreted by me (3pts min.). @ -None X-rays interpreted by me (1pt min.). @ -None done CT interpreted by me (1pt min.). @ -CT sinuses and CT soft tissue neck interpreted me which revealed no evidence of acute finding. U/S interpreted by me (1pt. min.). @ -None done What testing was considered but not performed or refused? (CT, X-rays, U/S, labs)? Why? @ -None What meds were considered but not given or refused? Why? @ -None Did you discuss the management of the patient with other professionals (professionals i.e. , PA, S[employer] C[employer]TER, lab, RT, psych nurse, social insurance analyst, grain i farmworker, teacher, deputy juvenile officer, case management manager)? Give summary @ -No Was smoking cessation discussed for >3mins.? @ -No Was critical care preformed (if so, how long)? @ -No Were there social determinants of health that impacted care today? How? (Homelessness, low income, unemployed, alcoholism, drug addiction, transportation, low edu. Level, literacy, decrease access to med. care, retirement, rehab)? @ -No Was there de-escalation of care discussed even if they declined (Discuss DNR or withdrawal of care, Hospice)? DNR status @ -No What co-morbidities impacted this encounter? (DM, HTN, Smoking, COPD, CAD, Cancer, CVA, ARF, Chemo, Hep., AIDS, mental health diagnosis, sleep apnea, morbid obesity)? @ -None Was patient admitted / discharged? Hospital course, mention meds given and route, prescriptions, significant lab abnormalities, going to OR and other pertinent info. @ -Discharge 33-year-old female presenting to the ED with complaints of left ear pain ongoing for the last 2 days now with concerns of left-sided neck swelling. On examination difficult secondary to patient compliance however warmth erythema tenderness to palpation of the external ear. External auditory canal does appear swollen. No mastoid process tenderness to palpation. Does appear to have left cervical lymphadenopathy. Tolerating secretions. No stridor. Laboratory studies reviewed. CBC unremarkable. Chemistry panel largely unremarkable. UA unremarkable. CAT scans were performed and reviewed. CT soft tissue neck revealed no suspicious changes to suggest abscess formation. Some lymphadenopathy present. CT of the sinuses revealed no evidence of acute finding. No mass inferior to the mastoid air cells. Patient provided Ciprodex eardrops and starter pack for Augmentin. Discharged home with prescription for Augmentin as well. Discharged home in stable condition advised close follow-up with her PCP. Discussed return precautions with patient who verbalized agreement. Undiagnosed new problem with uncertain prognosis? @ -No Drug Therapy requiring intensive monitoring for toxicity (Heparin, Nitro, Insulin, Cardizem)? @ -No Were any procedures done? @ -No Diagnosis/symptom? @ -Otitis externa Acute, or Chronic, or Acute on Chronic? @ -Acute Uncomplicated (without systemic symptoms) or Complicated (systemic symptoms)? @ -Uncomplicated Side effects of treatment? @ -No Exacerbation, Progression, or Severe Exacerbation? @ -No Poses a threat to life or bodily function? How? (Chest pain, [place], [place], pneumonia, PE, COPD, DKA, ARF, appy, cholecystitis, CVA, Diverticulitis, Homicidal, Suic idal, threat to staff... and all critical care pts) @ -No (LeaSebastien) - Lab Data Lab Results 04/23/24 04/23/24 04/23/24 Range/Units 17:14 17:14 17:14 WBC 7.6 (3.8-10.6) k/uL RBC 4.42 (3.80-5.40) m/uL Hgb 14.0 (11.4-16.0) gm/dL Hct 41.7 (34.0-46.0) % MCV 94.4 (80.0-100.0) fL MCH 31.7 (25.0-35.0) pg MCHC 33.5 (31.0-37.0) g/dL RDW 12.0 (11.5-15.5) % Plt Count 296 (150-450) k/uL MPV 7.5 Neutrophils % 66 % Lymphocytes % 25 % Monocytes % 6 % Eosinophils % 2 % Basophils % 1 % Neutrophils # 5.0 (1.3-7.7) k/uL Lymphocytes # 1.9 (1.0-4.8) k/uL Monocytes # 0.4 (0-1.0) k/uL Eosinophils # 0.1 (0-0.7) k/uL Basophils # 0.1 (0-0.2) k/uL Sodium 140 (137-145) mmol/L Potassium 3.9 (3.5-5.1) mmol/L Chloride 107 (98-107) mmol/L Carbon Dioxide 24 (22-30) mmol/L Anion Gap 9 mmol/L BUN 14 (7-17) mg/dL Creatinine 0.74 (0.52-1.04) mg/dL Est GFR (CKD-EPI)AfAm >90 (>60 ml/min/1.73 sqM) Est GFR (CKD-EPI)NonAf >90 (>60 ml/min/1.73 sqM) Glucose 89 (74-99) mg/dL Plasma Lactic Acid Ayo 1.2 (0.7-2.0) mmol/L Calcium 9.0 (8.4-10.2) mg/dL Total Bilirubin 1.5 H (0.2-1.3) mg/dL AST 20 (14-36) U/L ALT 16 (4-34) U/L Alkaline Phosphatase 91 (38-126) U/L C-Reactive Protein 1.2 H (<1.0) mg/dL Total Protein 7.8 (6.3-8.2) g/dL Albumin 4.8 (3.5-5.0) g/dL Urine Color Urine Appearance (Clear) Urine pH (5.0-8.0) Ur Specific [place] (1.001-1.035) Urine Protein (Negative) Urine Glucose (UA) (Negative) Urine Ketones (Negative) Urine Blood (Negative) Urine Nitrite (Negative) Urine Bilirubin (Negative) Urine Urobilinogen (<2.0) mg/dL Ur Leukocyte Esterase (Negative) Urine RBC (0-5) /hpf Urine WBC (0-5) /hpf Ur Squamous Epith Cells (0-4) /hpf Urine Mucus (None) /hpf Urine HCG, Qual (Not Detectd) 04/23/24 04/23/24 Range/Units 18:19 18:19 WBC (3.8-10.6) k/uL RBC (3.80-5.40) m/uL Hgb (11.4-16.0) gm/dL Hct (34.0-46.0) % MCV (80.0-100.0) fL MCH (25.0-35.0) pg MCHC (31.0-37.0) g/dL RDW (11.5-15.5) % Plt Count (150-450) k/uL MPV Neutrophils % % Lymphocytes % % Monocytes % % Eosinophils % % Basophils % % Neutrophils # (1.3-7.7) k/uL Lymphocytes # (1.0-4.8) k/uL Monocytes # (0-1.0) k/uL Eosinophils # (0-0.7) k/uL Basophils # (0-0.2) k/uL Sodium (137-145) mmol/L Potassium (3.5-5.1) mmol/L Chloride (98-107) mmol/L Carbon Dioxide (22-30) mmol/L Anion Gap mmol/L BUN (7-17) mg/dL Creatinine (0.52-1.04) mg/dL Est GFR (CKD-EPI)AfAm (>60 ml/min/1.73 sqM) Est GFR (CKD-EPI)NonAf (>60 ml/min/1.73 sqM) Glucose (74-99) mg/dL Plasma Lactic Acid Ayo (0.7-2.0) mmol/L Calcium (8.4-10.2) mg/dL Total Bilirubin (0.2-1.3) mg/dL AST (14-36) U/L ALT (4-34) U/L Alkaline Phosphatase (38-126) U/L C-Reactive Protein (<1.0) mg/dL Total Protein (6.3-8.2) g/dL Albumin (3.5-5.0) g/dL Urine Color Colorless Urine Appearance Clear (Clear) Urine pH 5.5 (5.0-8.0) Ur Specific [place] 1.011 (1.001-1.035) Urine Protein Negative (Negative) Urine Glucose (UA) Negative (Negative) Urine Ketones Negative (Negative) Urine Blood Small H (Negative) Urine Nitrite Negative (Negative) Urine Bilirubin Negative (Negative) Urine Urobilinogen <2.0 (<2.0) mg/dL Ur Leukocyte Esterase Negative (Negative) Urine RBC 2 (0-5) /hpf Urine WBC 1 (0-5) /hpf Ur Squamous Epith Cells 1 (0-4) /hpf Urine Mucus Rare H (None) /hpf Urine HCG, Qual Not Detected (Not Detectd) Disposition <Jeri Gao - Last Filed: 04/23/24 15:21> Is patient prescribed a controlled substance at d/c from ED?: No Time of Disposition: 20:30 <Sebastien Tate - Last Filed: 04/23/24 20:53> Clinical Impression: Otitis externa Disposition: HOME SELF-CARE Condition: Good Instructions (If sedation given, give patient instructions): Ear Infection (ED) Additional Instructions: Please return to the Emergency Department if symptoms worsen or any other concerns. Please follow-up with your primary care provider. For eardrops, use 4 drops in the left ear twice a day for 7 days. Prescriptions: Amoxic-Pot Clav 875-125Mg [Augmentin 875-125] 1 tab PO Q12HR 7 Days #14 tab Referrals: Chente Martinez MD [Primary Care Provider] - 1-2 days
[2024-04-23] MEDS: SODIUM CHLORIDE 0.9% 1,000 ML IV STA (17:26)
[2024-04-23] MEDS: HYDROmorphone 1 MG/ML 1 ML SYRINGE IVP STA (17:36)
[2024-04-23] MEDS: DEXAMETHASONE SOD PHOSPHATE 10 MG/ML 1 ML VIAL IVP STA (17:37)
[2024-04-23] MEDS: KETOROLAC 15 MG/ML 1 ML VIAL IVP STA (17:37)
[2024-04-23 17:39] LABS: Basophils # (A) 0.1 k/uL (0-0.2); Basophils % (A) 1 %; Eosinophils # (A) 0.1 k/uL (0-0.7); Eosinophils % (A) 2 %; HCT 41.7 % (34.0-46.0); Lymphocytes # (A) 1.9 k/uL (1.0-4.8); Lymphocytes % (A) 25 %; MCH 31.7 pg (25.0-35.0); MCHC 33.5 g/dL (31.0-37.0); MCV 94.4 fL (80.0-100.0); Mean Platelet Volume 7.5; Monocytes # (A) 0.4 k/uL (0-1.0); Monocytes % (A) 6 %; Neutrophils % (A) 66 %; Platelet Count 296 k/uL (150-450); RBC 4.42 m/uL (3.80-5.40); WBC 7.6 k/uL (3.8-10.6)
[2024-04-23 18:02] LABS: ALT 16 U/L (4-34); AST 20 U/L (14-36); African American GFR (CKD) >90 (>60 ml/min/1.73 sqM); Albumin 4.8 g/dL (3.5-5.0); Alkaline Phosphatase 91 U/L (38-126); Anion Gap 9 mmol/L; Blood Urea Nitrogen 14 mg/dL (7-17); C Reactive Protein 1.2 mg/dL (<1.0); Carbon Dioxide 24 mmol/L (22-30); Chloride 107 mmol/L (98-107); Glucose 89 mg/dL (74-99); Non-African American GFR(CKD) >90 (>60 ml/min/1.73 sqM); Potassium 3.9 mmol/L (3.5-5.1); Sodium 140 mmol/L (137-145); Total Bilirubin 1.5 mg/dL (0.2-1.3); Total Protein 7.8 g/dL (6.3-8.2)
[2024-04-23 18:32] LABS: Appearance,Urine Clear (Clear); Bilirubin,Urine Negative (Negative); Blood,Urine Small (Negative); Color,Urine Colorless; Glucose,Urine (UA) Negative (Negative); Ketones,Urine Negative (Negative); Leukocyte Esterase,Urine Negative (Negative); Mucus,Urine Rare /hpf; Nitrite,Urine Negative (Negative); PH, Urine 5.5 (5.0-8.0); Protein,Urine Negative (Negative); RBC,Urine 2 /hpf (0-5); Specific Gravity,Urine 1.011 (1.001-1.035); Squamous Epithelial Cell,Urine 1 /hpf (0-4); Urobilinogen,Urine <2.0 mg/dL (<2.0); WBC,Urine 1 /hpf (0-5)
[2024-04-23 19:18] VITALS: TEMP 98.4
--- NOTE | 2024-04-23 20:14 | CT ---
EXAMINATION TYPE: CT sinus w con DATE OF EXAM: 04/23/2024 COMPARISON: HISTORY: Lump on left side of neck below left mastoid. Neck and ear pain. r/o abscess formation. CT DLP: 757.1 mGycm CONTRAST: 100 ml mL of Isovue 300 The paranasal sinuses are examined in the axial plane at 2 mm thick sections. Reconstructed images i n the coronal plane were obtained. No discrete mass inferior to the mastoid air cells is evident. Parotid glands appear symmetrical cont ralateral right. No suspicious adenopathy. No suspicious abscess. The maxillary sinuses are clear. The ethmoid air cells are clear. The sphenoid sinuses are clear. The frontal sinuses are clear. The septum is evaluated. There is septal deviation to the right. The ostiomeatal units are patent. Patient is edentulous. IMPRESSION: 1. No suspicious abnormality account for palpable region left-sided neck below mastoid. Follow up ex ams can be performed as clinically indicated.
--- NOTE | 2024-04-23 20:19 | CT ---
EXAMINATION TYPE: CT soft tissue neck w con DATE OF EXAM: 04/23/2024 COMPARISON: HISTORY: Lump on left side of neck below left mastoid. Neck and ear pain. r/o abscess formation. CT DLP: 757.1 mGycm CONTRAST: Patient injected with 100 ml mL of Isovue 300. TECHNIQUE: Axial images at 3 mm thick sections. Reconstructed images in the coronal plane and sagitt al plane are reviewed. FINDINGS: Limited CT sections are obtained the lung apices. The lung apices appear clear. CT neck: The torus tubarius and fossa of Rosenmuller are normal. Family Service Aide spaces are normal. Para nasal sinuses and mastoid air cells are clear. Parotid glands appear normal and symmetrical. Submandibular glands, are normal. Parapharyngeal spac es are normal. No suspicious adenopathy is evident. Some mild shotty lymphadenopathy is present on t he left posterior triangle and submandibular regions bilaterally. The hypopharynx appears within normal limits. Vocal cord level appear symmetrical. Thyroid as visualized is normal. Osseous structures are normal. IMPRESSION: 1. No suspicious changes to suggest abscess formation. 2. Some shotty lymphadenopathy is present left. Suspicious enlarged adenopathy is not identified.
[2024-04-23] MEDS: CIPROFLOXACIN-DEXAMETH 0.3-0.1% DROPS 7.5 ML BTL LEFT EAR STA (21:06)
[2024-04-23] MEDS: AMOXIC-POT CLAV 875MG STARTER PACK 2 TAB BTL PO STA (21:06)
[2024-04-23 21:29] VITALS: BP 109/73; PULSE 66; RESP 18
[2024-04-23 23:12] LABS: Erythrocyte Sedimentation Rate 24 mm/Hr (0-20)
== END 2024-04-23 21:10 | disposition home or self-care (01) ==
LOC: EC 14:47
DX: H60.92 Unspecified otitis externa, left ear (principal); F17.200 Nicotine dependence, unspecified, uncomplicated; F15.90 Other stimulant use, unspecified, uncomplicated
CPT/HCPCS: 36415; 80053; 85652; 83605; 85025; 86140; 81001; 81025; 70491; 70487; 99284; 96374; 96375 ×2; 96361 ×3; J1100; J1170; J1885; Q9967

== ENCOUNTER 2024-06-04 01:59 | Emergency (ER) | payer OTHER ==
[2024-06-04 02:04] VITALS: BP 132/79; PULSE 81; RESP 18; TEMP 98
--- NOTE | 2024-06-04 02:46 | ED ---
General Adult HPI - General Chief complaint: Skin/Abscess/Foreign Body Stated complaint: Left leg swelling Time Seen by Provider: 06/04/24 02:13 Source: patient, RN notes reviewed Mode of arrival: ambulatory Limitations: no limitations - History of Present Illness Initial comments: 33-year-old female presents to the emergency department for evaluation of left lower extremity swelling and anterior redness. She states that the redness has been going on for 2 to 3 months. She notes that she had an injury at this time and developed this following it. There is a small region of redness in the anterior marley. She states that over the past few days she has noticed itching in the lower extremity along with some swelling. She denies any new trauma. She denies recent fever, chills, calf tenderness, chest pain, shortness of breath. - Related Data Previous Rx's Medication Instructions Recorded Amoxic-Pot Clav 875-125Mg 1 tab PO BID 10 Days #20 tab 04/02/23 [Augmentin 875-125] Dicyclomine [Bentyl] 20 mg PO TID #30 tablet 04/02/23 Ondansetron Odt [Zofran Odt] 4 mg PO Q8HR PRN #10 tab 04/02/23 Ketorolac [Toradol] 10 mg PO Q6HR PRN #12 tab 04/16/23 Amoxic-Pot Clav 875-125Mg 1 tab PO Q12HR 7 Days #14 tab 04/23/24 [Augmentin 875-125] Cephalexin [Keflex] 500 mg PO Q6HR #40 cap 06/04/24 Sulfamethox-Tmp 800-160Mg [Bactrim 1 each PO Q12HR 7 Days #14 tab 06/07/24 Ds] Allergies Allergy/AdvReac Type Severity Reaction Status Date / Time No Known Allergies Allergy Verified 06/07/24 17:34 Review of Systems ROS Statement: Those systems with pertinent positive or pertinent negative responses have been documented in the HPI. ROS Other: All systems not noted in ROS Statement are negative. Past Medical History Additional Past Medical History / Comment(s): "tetanus" History of Any Multi-Drug Resistant Organisms: MRSA Date of last positivie culture/infection: august 2021 MDRO Source:: nose Past Surgical History: Cholecystectomy Past Psychological History: No Psychological Hx Reported Smoking Status: Current every day smoker Past Alcohol Use History: Occasional Past Drug Use History: Methamphetamine General Exam Limitations: no limitations General appearance: alert, in no apparent distress Head exam: Present: atraumatic, normocephalic, normal inspection Eye exam: Present: normal appearance, PERRL, EOMI. Absent: scleral icterus, conjunctival injection, periorbital swelling Respiratory exam: Present: normal lung sounds bilaterally. Absent: respiratory distress, wheezes, rales, rhonchi, stridor Cardiovascular Exam: Present: regular rate, normal rhythm, normal heart sounds. Absent: systolic murmur, diastolic murmur, rubs, gallop, clicks Extremities exam: Present: full ROM, normal capillary refill, other (Erythema to the lateral aspect of the left leg). Absent: tenderness, pedal edema, joint swelling, calf tenderness Neurological exam: Present: alert, oriented X3 Psychiatric exam: Present: normal affect, normal mood Skin exam: Present: warm, dry, intact, erythema. Absent: normal color Course Vital Signs 06/04/24 02:03 Temperature 98 F Pulse Rate 81 Respiratory 18 Rate Blood Pressure 132/79 O2 Sat by Pulse 99 Oximetry Medical Decision Making - Medical Decision Making Was pt. sent in by a medical professional or institution (, PA, [employer], urgent care, hospital, or detention...) When possible be specific @ -No Did you speak to anyone other than the patient for history (EMS, parent, family, police, friend...)? What history was obtained from this source @ -No Did you review nursing and triage notes (agree or disagree)? Why? @ -I reviewed and agree with nursing and triage notes Were old charts reviewed (outside hosp., previous admission, EMS record, old EKG, old radiological studies, urgent care reports/EKG's, detention records)? Report findings @ -No old charts were reviewed Differential Diagnosis (chest pain, altered mental status, abdominal pain women, abdominal pain men, vaginal bleeding, weakness, fever, dyspnea, syncope, headache, dizziness, GI bleed, back pain, seizure, CVA, palpatations, mental health, musculoskeletal)? @ -Differential Musculoskeletal Muscular strain, contusion, ligament sprain, fracture, arthritis, septic arthritis, bursitis, cellulitis, muscle spasm, nerve compression, DVT, arterial occlusion, herpes zoster, electrolyte abnormality, tumor.... This is not meant to be in all inclusive list EKG interpreted by me (3pts min.). @ -None X-rays interpreted by me (1pt min.). @ -None done CT interpreted by me (1pt min.). @ -None done U/S interpreted by me (1pt. min.). @ -None done What testing was considered but not performed or refused? (CT, X-rays, U/S, labs)? Why? @ -None What meds were considered but not given or refused? Why? @ -None Did you discuss the management of the patient with other professionals (professionals i.e. , PA, [employer], lab, RT, psych nurse, social worker assistant, framing mill operator helper, teacher, chief fundraising officer, piano case maker)? Give summary @ -No Was smoking cessation discussed for >3mins.? @ -No Was critical care preformed (if so, how long)? @ -No Were there social determinants of health that impacted care today? How? (Homelessness, low income, unemployed, alcoholism, drug addiction, transportation, low edu. Level, literacy, decrease access to med. care, half-way, rehab)? @ -No Was there de-escalation of care discussed even if they declined (Discuss DNR or withdrawal of care, Hospice)? DNR status @ -No What co-morbidities impacted this encounter? (DM, HTN, Smoking, COPD, CAD, Cancer, CVA, ARF, Chemo, Hep., AIDS, mental health diagnosis, sleep apnea, m orbid obesity)? @ -None Was patient admitted / discharged? Hospital course, mention meds given and route, prescriptions, significant lab abnormalities, going to OR and other pertinent info. @ -Discharged. Patient presented to the emergency department for evaluation of left lower extremity redness, itching, and swelling. Patient appears to have a cellulitic area to the left anterior marley. She will be placed on antibiotics. She was also provided topical steroid cream. Patient will be discharged home. Patient understanding and agreeable with plan. Case discussed with Dr. Dodson Undiagnosed new problem with uncertain prognosis? @ -No Drug Therapy requiring intensive monitoring for toxicity (Heparin, Nitro, Insulin, Cardizem)? @ -No Were any procedures done? @ -No Diagnosis/symptom? @ -Cellulitis Acute, or Chronic, or Acute on Chronic? @ -acute Uncomplicated (without systemic symptoms) or Complicated (systemic symptoms)? @ -uncomplicated Side effects of treatment? @ -No Exacerbation, Progression, or Severe Exacerbation? @ -No Poses a threat to life or bodily function? How? (Chest pain, [place], [place], pneumonia, PE, COPD, DKA, ARF, appy, cholecystitis, CVA, Diverticulitis, Homicidal, Suicidal, threat to staff... and all critical care pts) @ -No Disposition Clinical Impression: Cellulitis Disposition: HOME SELF-CARE Condition: Stable Instructions (If sedation given, give patient instructions): Cellulitis (ED) Additional Instructions: Utilize the steroid cream 3 times daily for one week. supervisor claims antibiotics and take to completion. Follow up with your primary care provider. Return to the emergency department for new or worsening symptoms. Prescriptions: Cephalexin [Keflex] 500 mg PO Q6HR #40 cap Is patient prescribed a controlled substance at d/c from ED?: No Referrals: Chente Martinez MD [Primary Care Provider] - 1-2 days
[2024-06-04] MEDS: TRIAMCINOLONE ACET 0.1% OINTMENT 15 GM TUBE TOPICAL STA (02:55)
[2024-06-04] MEDS: CEPHALEXIN 500 MG CAP PO STA (02:55)
== END 2024-06-04 02:58 | disposition home or self-care (01) ==
LOC: EC 01:59
DX: L03.116 Cellulitis of left lower limb (principal); F17.200 Nicotine dependence, unspecified, uncomplicated
CPT/HCPCS: 99282

== ENCOUNTER 2024-06-07 17:23 | Emergency (ER) | payer OTHER ==
--- NOTE | 2024-06-07 18:24 | ED ---
Extremity Problem HPI - General Source: patient, RN notes reviewed, old records reviewed Mode of arrival: ambulatory Limitations: no limitations <Raul Askew - Last Filed: 06/07/24 18:23> - General Source: RN notes reviewed <Jeri Gao - Last Filed: 06/07/24 20:57> - General Chief complaint: Extremity Problem,Nontraumatic Stated complaint: poss abcess/infection L leg Time Seen by Provider: 06/07/24 19:04 - History of Present Illness Initial comments: QN 33 female to ER for evaluation of left lower extremity pain left marley pain on antibiotics with no improvement, concern for abscess (Raul Askew) 33-year-old female presenting to the ER for left lower extremity redness x 3 weeks. States 1 month ago she hit her leg on the side of her bed. Shortly after, she began to experience pain and redness on her left marley. She was seen for this here in the ER several days ago where they diagnosed her with cellulitis and put her on Keflex. She has been taking the Keflex with no improvement. She states the redness and pain is worsening. She was sent by her PCP for concern of "abscess on her bone". She is able to ambulate. Denies fevers or chills. She does have a history of MRSA. Denies recent surgeries or travel. Denies hormone replacement therapy, history of blood clot. She is a non-smoker. (Jeri Gao) - Related Data Previous Rx's Medication Instructions Recorded Amoxic-Pot Clav 875-125Mg 1 tab PO BID 10 Days #20 tab 04/02/23 [Augmentin 875-125] Dicyclomine [Bentyl] 20 mg PO TID #30 tablet 04/02/23 Ondansetron Odt [Zofran Odt] 4 mg PO Q8HR PRN #10 tab 04/02/23 Ketorolac [Toradol] 10 mg PO Q6HR PRN #12 tab 04/16/23 Amoxic-Pot Clav 875-125Mg 1 tab PO Q12HR 7 Days #14 tab 04/23/24 [Augmentin 875-125] Cephalexin [Keflex] 500 mg PO Q6HR #40 cap 06/04/24 Sulfamethox-Tmp 800-160Mg [Bactrim 1 each PO Q12HR 7 Days #14 tab 06/07/24 Ds] Allergies Allergy/AdvReac Type Severity Reaction Status Date / Time No Known Allergies Allergy Verified 06/07/24 17:34 Review of Systems ROS Other: All systems not noted in ROS Statement are negative. <Raul Askew - Last Filed: 06/07/24 18:23> ROS Other: All systems not noted in ROS Statement are negative. <Jeri Gao - Last Filed: 06/07/24 20:57> ROS Statement: Those systems with pertinent positive or pertinent negative responses have been documented in the HPI. Past Medical History Additional Past Medical History / Comment(s): "tetanus" History of Any Multi-Drug Resistant Organisms: MRSA Date of last positivie culture/infection: august 2021 MDRO Source:: nose Past Surgical History: Cholecystectomy Past Psychological History: No Psychological Hx Reported Smoking Status: Former smoker Past Alcohol Use History: Occasional Past Drug Use History: Methamphetamine <Raul Askew - Last Filed: 06/07/24 18:23> General Exam Limitations: no limitations General appearance: alert, in no apparent distress Head exam: Present: atraumatic, normocephalic, normal inspection Eye exam: Present: normal appearance, PERRL, EOMI. Absent: scleral icterus, conjunctival injection, periorbital swelling ENT exam: Present: normal exam, mucous membranes moist Neck exam: Present: normal inspection. Absent: tenderness, meningismus, lymphadenopathy Respiratory exam: Present: normal lung sounds bilaterally. Absent: respiratory distress, wheezes, rales, rhonchi, stridor Cardiovascular Exam: Present: regular rate, normal rhythm, normal heart sounds. Absent: systolic murmur, diastolic murmur, rubs, gallop, clicks GI/Abdominal exam: Present: soft, normal bowel sounds. Absent: distended, tenderness, guarding, rebound, rigid Extremities exam: Present: normal inspection, full ROM, normal capillary refill. Absent: tenderness, pedal edema, joint swelling, calf tenderness Back exam: Present: normal inspection Neurological exam: Present: alert, oriented X3, CN II-XII intact Psychiatric exam: Present: normal affect, normal mood Skin exam: Present: warm, dry, intact, normal color. Absent: rash <Raul Askew - Last Filed: 06/07/24 18:23> General appearance: alert, in no apparent distress Head exam: Present: atraumatic, normocephalic, normal inspection Neck exam: Present: normal inspection. Absent: tenderness, meningismus, lymphadenopathy Respiratory exam: Present: normal lung sounds bilaterally. Absent: respiratory distress, wheezes, rales, rhonchi, stridor Cardiovascular Exam: Present: regular rate, normal rhythm, normal heart sounds. Absent: systolic murmur, diastolic murmur, rubs, gallop, clicks GI/Abdominal exam: Present: soft, normal bowel sounds. Absent: distended, tenderness, guarding, rebound, rigid Left Knee exam: Present: normal inspection, full ROM. Absent: tenderness, swelling Lower Leg exam: Present: full ROM, tenderness, swelling (Mild edema). Absent: normal inspection (Diffuse erythema present on anterior left lower leg with tenderness to palpation. No drainage.), abrasion, laceration, deformity Ankle exam: Present: normal inspection, full ROM. Absent: tenderness, swelling Foot/Toe exam: Present: normal inspection, full ROM. Absent: tenderness, swelling Neurovascular tendon exam: Present: no vascular compromise. Absent: pulse deficit, abnormal cap refill, sensory deficit <Jeri Gao - Last Filed: 06/07/24 20:57> Course <Raul Askew - Last Filed: 06/07/24 18:23> Vital Signs 06/07/24 06/07/24 06/07/24 17:32 18:37 19:00 Temperature 98.7 F 98.5 F Pulse Rate 88 88 84 Respiratory 20 16 16 Rate Blood Pressure 131/86 125/90 117/74 O2 Sat by Pulse 99 99 100 Oximetry - Reevaluation(s) Reevaluation #1: 06/07/24 18:24 QN completed by myself Dr Askew (Raul Askew) Medical Decision Making - Lab Data Result diagrams: 06/07/24 19:35 06/07/24 19:35 <Jeri Gao - Last Filed: 06/07/24 20:57> - Medical Decision Making Was pt. sent in by a medical professional or institution (, PA, BOTTLE SORTER, urgent care, hospital, or usp...) When possible be specific @ -Sent by PCP for concern for abscess Did you speak to anyone other than the patient for history (EMS, parent, family, police, friend...)? What history was obtained from this source @ -No Did you review nursing and triage notes (agree or disagree)? Why? @ -I reviewed and agree with nursing and triage notes Were old charts reviewed (outside hosp., previous admission, EMS record, old EKG, old radiological studies, urgent care reports/EKG's, usp records)? Report findings @ -No old charts were reviewed Differential Diagnosis (chest pain, altered mental status, abdominal pain women, abdominal pain men, vaginal bleeding, weakness, fever, dyspnea, syncope, headache, dizziness, GI bleed, back pain, seizure, CVA, palpatations, mental health, musculoskeletal)? @ -Differential Musculoskeletal Muscular strain, contusion, ligament sprain, fracture, arthritis, septic arthritis, bursitis, cellulitis, muscle spasm, nerve compression, DVT, arterial occlusion, herpes zoster, electrolyte abnormality, tumor.... This is not meant to be in all inclusive list EKG interpreted by me (3pts min.). @ -None X-rays interpreted by me (1pt min.). @ -X-ray reveals no evidence of acute fracture, no subcutaneous gas visualized, no osseous erosion CT interpreted by me (1pt min.). @ -None done U/S interpreted by me (1pt. min.). @ -Ultrasound revealed no significant sonographic evidence for DVT of left lower extremity What testing was considered but not performed or refused? (CT, X-rays, U/S, labs)? Why? @ -None What meds were considered but not given or refused? Why? @ -None Did you discuss the management of the patient with other professionals (professionals i.e. , PA, BOTTLE SORTER, lab, RT, psych nurse, social economist, physician relations representative, teacher, credit control officer, casework supervisor)? Give summary @ -No Was smoking cessation discussed for >3mins.? @ -No Was critical care preformed (if so, how long)? @ -No Were there social determinants of health that impacted care today? How? (Homelessness, low income, unemployed, alcoholism, drug addiction, transportation, low edu. Level, literacy, decrease access to med. care, [facility], rehab)? @ -No Was there de-escalation of care discussed even if they declined (Discuss DNR or withdrawal of care, Hospice)? DNR status @ -No What co-morbidities impacted this encounter? (DM, HTN, Smoking, COPD, CAD, Canc er, CVA, ARF, Chemo, Hep., AIDS, mental health diagnosis, sleep apnea, morbid obesity)? @ -None Was patient admitted / discharged? Hospital course, mention meds given and route, prescriptions, significant lab abnormalities, going to OR and other pertinent info. @ -Patient was discharged. Patient was seen and evaluated for rash on left lower leg x 1 month. Patient was diagnosed with cellulitis and placed on Keflex a few days ago. Denies fevers, chills. No red flag symptoms. There is mild erythema on anterior left lower leg with no drainage. Lab work including CBC, CMP, coags, CRP is unremarkable. White blood cell count is 8. X-ray reveals no evidence of acute fracture, no subcutaneous gas visualized, no osseous erosion. Ultrasound reveals no significant evidence for DVT of left lower extremity. Discussed with patient that symptoms are likely due to mild cellulitis. Advised to continue Keflex and prescribed Bactrim as well. Advised to follow-up with PCP in 1 to 3 days for reevaluation. Strict return parameters discussed with patient is agreeable to plan. Case was discussed with my attending Dr. Beckett. Patient discharged in stable condition. Undiagnosed new problem with uncertain prognosis? @ -No Drug Therapy requiring intensive monitoring for toxicity (Heparin, Nitro, Insulin, Cardizem)? @ -No Were any procedures done? @ -No Diagnosis/symptom? @ -Cellulitis of left lower leg Acute, or Chronic, or Acute on Chronic? @ -Acute Uncomplicated (without systemic symptoms) or Complicated (systemic symptoms)? @ -Uncomplicated Side effects of treatment? @ -No Exacerbation, Progression, or Severe Exacerbation? @ -No Poses a threat to life or bodily function? How? (Chest pain, [place], [place], pneumonia, PE, COPD, DKA, ARF, appy, cholecystitis, CVA, Diverticulitis, Homicidal, S uicidal, threat to staff... and all critical care pts) @ -Unlikely (Jeri Gao) - Lab Data Lab Results 06/07/24 06/07/24 06/07/24 Range/Units 19:35 19:35 19:35 WBC 8.0 (3.8-10.6) k/uL RBC 4.08 (3.80-5.40) m/uL Hgb 13.8 (11.4-16.0) gm/dL Hct 39.1 (34.0-46.0) % MCV 95.9 (80.0-100.0) fL MCH 33.7 (25.0-35.0) pg MCHC 35.2 (31.0-37.0) g/dL RDW 12.3 (11.5-15.5) % Plt Count 281 (150-450) k/uL MPV 7.8 Neutrophils % 65 % Lymphocytes % 25 % Monocytes % 6 % Eosinophils % 2 % Basophils % 1 % Neutrophils # 5.2 (1.3-7.7) k/uL Lymphocytes # 2.0 (1.0-4.8) k/uL Monocytes # 0.5 (0-1.0) k/uL Eosinophils # 0.2 (0-0.7) k/uL Basophils # 0.1 (0-0.2) k/uL PT 10.4 (10.0-12.5) sec INR 0.9 (<1.2) APTT 23.2 (22.0-30.0) sec Sodium 139 (137-145) mmol/L Potassium 3.6 (3.5-5.1) mmol/L Chloride 106 (98-107) mmol/L Carbon Dioxide 25 (22-30) mmol/L Anion Gap 8 mmol/L BUN 13 (7-17) mg/dL Creatinine 0.68 (0.52-1.04) mg/dL Est GFR (CKD-EPI)AfAm >90 (>60 ml/min/1.73 sqM) Est GFR (CKD-EPI)NonAf >90 (>60 ml/min/1.73 sqM) Glucose 100 H (74-99) mg/dL Calcium 9.4 (8.4-10.2) mg/dL Total Bilirubin 0.8 (0.2-1.3) mg/dL AST 20 (14-36) U/L ALT 16 (4-34) U/L Alkaline Phosphatase 68 (38-126) U/L C-Reactive Protein <0.5 (<1.0) mg/dL Total Protein 7.1 (6.3-8.2) g/dL Albumin 4.5 (3.5-5.0) g/dL Disposition <Raul Askew - Last Filed: 06/07/24 18:23> Is patient prescribed a controlled substance at d/c from ED?: No Time of Disposition: 20:52 <Jeri Gao - Last Filed: 06/07/24 20:57> Clinical Impression: Cellulitis Disposition: HOME SELF-CARE Condition: Stable Instructions (If sedation given, give patient instructions): Cellulitis (ED) Additional Instructions: Please take antibiotics as prescribed. Please return to the Emergency Depar tment if symptoms worsen or any other concerns. Prescriptions: Sulfamethox-Tmp 800-160Mg [Bactrim Ds] 1 each PO Q12HR 7 Days #14 tab Referrals: Chente Martinez MD [Primary Care Provider] - 1-2 days
[2024-06-07 18:40] VITALS: TEMP 98.5
[2024-06-07 19:44] LABS: Basophils # (A) 0.1 k/uL (0-0.2); Basophils % (A) 1 %; Eosinophils # (A) 0.2 k/uL (0-0.7); Eosinophils % (A) 2 %; HCT 39.1 % (34.0-46.0); HGB 13.8 gm/dL (11.4-16.0); Lymphocytes % (A) 25 %; MCH 33.7 pg (25.0-35.0); MCHC 35.2 g/dL (31.0-37.0); MCV 95.9 fL (80.0-100.0); Mean Platelet Volume 7.8; Monocytes # (A) 0.5 k/uL (0-1.0); Monocytes % (A) 6 %; Neutrophils # (A) 5.2 k/uL (1.3-7.7); Neutrophils % (A) 65 %; Platelet Count 281 k/uL (150-450); RBC 4.08 m/uL (3.80-5.40); RDW 12.3 % (11.5-15.5)
--- NOTE | 2024-06-07 19:45 | XR ---
EXAMINATION TYPE: XR tibia fibula LT DATE OF EXAM: 06/07/2024 7:24 PM CLINICAL INDICATION:Female, 33 years old with history of left leg erythema; [facility] COMPARISON: None TECHNIQUE: XR tibia fibula LT; tibia/fibula was examined in AP and lateral projections. FINDINGS: No evidence of any acute osseous pathology, joint dislocation, or soft tissue swelling is n oted. No subcutaneous lucencies or osseous erosion identified. IMPRESSION: No evidence of acute fracture. No subcutaneous gas is visualized. No osseous erosion.
[2024-06-07 19:55] LABS: ALT 16 U/L (4-34); AST 20 U/L (14-36); African American GFR (CKD) >90 (>60 ml/min/1.73 sqM); Albumin 4.5 g/dL (3.5-5.0); Alkaline Phosphatase 68 U/L (38-126); Anion Gap 8 mmol/L; Blood Urea Nitrogen 13 mg/dL (7-17); C Reactive Protein <0.5 mg/dL (<1.0); Calcium 9.4 mg/dL (8.4-10.2); Carbon Dioxide 25 mmol/L (22-30); Chloride 106 mmol/L (98-107); Glucose 100 mg/dL (74-99); Non-African American GFR(CKD) >90 (>60 ml/min/1.73 sqM); Potassium 3.6 mmol/L (3.5-5.1); Sodium 139 mmol/L (137-145); Total Bilirubin 0.8 mg/dL (0.2-1.3); Total Protein 7.1 g/dL (6.3-8.2)
[2024-06-07 20:00] LABS: INR 0.9 (<1.2); Partial Thromboplastin Time 23.2 sec (22.0-30.0); Prothrombin Time 10.4 sec (10.0-12.5)
--- NOTE | 2024-06-07 20:30 | US ---
EXAMINATION TYPE: US venous doppler duplex LE LT DATE OF EXAM: 06/07/2024 7:05 PM COMPARISON: NONE CLINICAL INDICATION: Female, 33 years old with history of Left leg erythema; Patient states left leg pain for one month, slight swelling and redness. No hx dvt. Patient not on thinners SIDE PERFORMED: Left TECHNIQUE: The lower extremity deep venous system is examined utilizing real time linear array sonog marry with graded compression, doppler sonography and color-flow sonography. VESSELS IMAGED: Common Femoral Vein Deep Femoral Vein Greater Saphenous Vein * Femoral Vein Popliteal Vein Small Saphenous Vein * Proximal Calf Veins (* superficial vessels) Left Leg: Negative for DVT as best seen today. There is a 1.2 x 0.6 x 1.4cm lymph node seen in the l eft groin with a 3mm cortex. Of the note this lymph node measures 6 mm in short axis which is not enl arged likely reactive in nature. No significant sonographic abnormality appreciated in the area of palpable concern. IMPRESSION: No sonographic evidence for deep venous thrombosis of the left lower extremity.
[2024-06-07 21:20] VITALS: BP 115/68; PULSE 78; RESP 18
[2024-06-07] MEDS: SULFAMETHOX-TMP 800-160MG 1 EACH TAB PO STA (21:26)
== END 2024-06-07 21:23 | disposition home or self-care (01) ==
LOC: EC 17:23
DX: L03.116 Cellulitis of left lower limb (principal); Z87.891 Personal history of nicotine dependence
CPT/HCPCS: 36415; 80053; 85025; 85610; 85730; 86140; 99284

== ENCOUNTER 2024-09-18 10:48 | Emergency (ER) | payer OTHER ==
[2024-09-18 10:54] VITALS: RESP 18; TEMP 97.7
[2024-09-18] MEDS: CYCLOBENZAPRINE 10 MG TAB PO STA (11:58)
[2024-09-18] MEDS: KETOROLAC 15 MG/ML 1 ML VIAL IM STA (11:59)
--- NOTE | 2024-09-18 12:37 | XR ---
EXAMINATION TYPE: XR shoulder complete 3 views LT DATE OF EXAM: 09/18/2024 Comparison: None Clinical History: 34-year-old female left shoulder pain Findings: AC joint appears congruent and intact. Subacromial space preserved. No acute fracture, subluxation, d islocation seen. Impression: No acute osseous abnormality seen. [facility] Jarett Enamorado, , 09/18/2024 12:35 PM
--- NOTE | 2024-09-18 13:10 | ED ---
Upper Extremity HPI - General Chief Complaint: Extremity Injury, Upper Stated Complaint: Left shoulder injury Time Seen by Provider: 09/18/24 11:30 Source: patient, RN notes reviewed Mode of arrival: ambulatory Limitations: no limitations - History of Present Illness Initial Comments: 34-year-old female presenting to the ER with chief complaint of left shoulder pain x 1.5 weeks. States she was sitting in a chair and felt she "moved wrong" feeling an immediate pain in her left shoulder. Patient has had increasing pain since then, worse with lying down and tender to touch. No chest pain, shortness of breath, fevers, chills. No significant past medical history. - Related Data Previous Rx's Medication Instructions Recorded Amoxic-Pot Clav 875-125Mg 1 tab PO BID 10 Days #20 tab 04/02/23 [Augmentin 875-125] Dicyclomine [Bentyl] 20 mg PO TID #30 tablet 04/02/23 Ondansetron Odt [Zofran Odt] 4 mg PO Q8HR PRN #10 tab 04/02/23 Ketorolac [Toradol] 10 mg PO Q6HR PRN #12 tab 04/16/23 Amoxic-Pot Clav 875-125Mg 1 tab PO Q12HR 7 Days #14 tab 04/23/24 [Augmentin 875-125] Cephalexin [Keflex] 500 mg PO Q6HR #40 cap 06/04/24 Sulfamethox-Tmp 800-160Mg [Bactrim 1 each PO Q12HR 7 Days #14 tab 06/07/24 Ds] Cyclobenzaprine [Flexeril] 10 mg PO TID PRN #15 tab 09/18/24 Lidocaine 5% Patch [Lidoderm 5% 1 patch TOPICAL DAILY 7 Days #7 09/18/24 Patch] patch Allergies Allergy/AdvReac Type Severity Reaction Status Date / Time sulfamethoxazole Allergy Rash/Hives Verified 09/18/24 10:51 [From Bactrim] trimethoprim [From Bactrim] Allergy Rash/Hives Verified 09/18/24 10:51 Review of Systems ROS Statement: Those systems with pertinent positive or pertinent negative responses have been documented in the HPI. ROS Other: All systems not noted in ROS Statement are negative. Past Medical History Additional Past Medical History / Comment(s): "tetanus" History of Any Multi-Drug Resistant Organisms: MRSA Date of last positivie culture/infection: august 2021 MDRO Source:: nose Past Surgical History: Cholecystectomy Past Psychological History: No Psychological Hx Reported Smoking Status: Former smoker Past Alcohol Use History: None Reported Past Drug Use History: None Reported General Exam Limitations: no limitations General appearance: alert, in no apparent distress Head exam: Present: atraumatic, normocephalic, normal inspection Neck exam: Present: normal inspection. Absent: tenderness, meningismus, lymphadenopathy Respiratory exam: Present: normal lung sounds bilaterally. Absent: respiratory distress, wheezes, rales, rhonchi, stridor Cardiovascular Exam: Present: regular rate, normal rhythm, normal heart sounds. Absent: systolic murmur, diastolic murmur, rubs, gallop, clicks Left Shoulder Exam: Present: normal inspection, full ROM, tenderness (Reproducible tenderness to palpation on posterior aspect of left shoulder.). Absent: swelling, abrasion, laceration, ecchymosis, deformity, crepitus, erythema Upper Arm exam: Present: normal inspection, full ROM. Absent: tenderness, swelling Elbow exam: Present: normal inspection, full ROM. Absent: tenderness, swelling Forearm Wrist exam: Present: normal inspection, full ROM. Absent: tenderness, swelling Hand Wrist exam: Present: normal inspection, full ROM. Absent: tenderness, swelling Neurological exam: Present: alert, oriented X3 Psychiatric exam: Present: normal affect, normal mood Skin exam: Present: warm, dry, intact, normal color. Absent: rash Course Vital Signs 09/18/24 09/18/24 10:51 13:27 Temperature 97.7 F Pulse Rate 95 65 Respiratory 18 18 Rate Blood Pressure 119/80 127/76 O2 Sat by Pulse 98 98 Oximetry Medical Decision Making - Medical Decision Making Was pt. sent in by a medical professional or institution (, PA, BED SETTER, urgent care, hospital, or retirement...) When possible be specific @ -No Did you speak to anyone other than the patient for history (EMS, parent, family, police, friend...)? What history was obtained from this source @ -No Did you review nursing and triage notes (agree or disagree)? Why? @ -I reviewed and agree with nursing and triage notes Were old charts reviewed (outside hosp., previous admission, EMS record, old EKG, old radiological studies, urgent care reports/EKG's, retirement records)? Report findings @ -No old charts were reviewed Differential Diagnosis (chest pain, altered mental status, abdominal pain women, abdominal pain men, vaginal bleeding, weakness, fever, dyspnea, syncope, headache, dizziness, GI bleed, back pain, seizure, CVA, palpatations, mental health, musculoskeletal)? @ -Differential Musculoskeletal Muscular strain, contusion, ligament sprain, fracture, arthritis, septic arthrit is, bursitis, cellulitis, muscle spasm, nerve compression, DVT, arterial occlusion, herpes zoster, electrolyte abnormality, tumor.... This is not meant to be in all inclusive list EKG interpreted by me (3pts min.). @ -None X-rays interpreted by me (1pt min.). @ -X-ray left shoulder reveals no acute process CT interpreted by me (1pt min.). @ -None done U/S interpreted by me (1pt. min.). @ -None done What testing was considered but not performed or refused? (CT, X-rays, U/S, labs)? Why? @ -None What meds were considered but not given or refused? Why? @ -None Did you discuss the management of the patient with other professionals (professionals i.e. , PA, BED SETTER, lab, RT, psych nurse, social media executive, election clerk, teacher, customer service officer, case packer and sealer)? Give summary @ -No Was smoking cessation discussed for >3mins.? @ -No Was critical care preformed (if so, how long)? @ -No Were there social determinants of health that impacted care today? How? (Homelessness, low income, unemployed, alcoholism, drug addiction, transportation, low edu. Level, literacy, decrease access to med. care, [facility], rehab)? @ -No Was there de-escalation of care discussed even if they declined (Discuss DNR or withdrawal of care, Hospice)? DNR status @ -No What co-morbidities impacted this encounter? (DM, HTN, Smoking, COPD, CAD, Cancer, CVA, ARF, Chemo, Hep., AIDS, mental health diagnosis, sleep apnea, morbid obesity)? @ -None Was patient admitted / discharged? Hospital course, mention meds given and route, prescriptions, significant lab abnormalities, going to OR and other pertinent info. @ -Discharge. This is a 34-year-old female presenting with left shoulder pain x 1.5 weeks after injury. No red flag symptoms. Neurovascular intact. No sign of bacterial infection. There is reproducible tenderness to palpation on posterior aspect of left shoulder. Patient was provided with analgesics. X-ray revealed no acute process of left shoulder. Upon reevaluation, patient reports symptoms have improved. Discussed diagnosis of left shoulder sprain. Advise follow-up with orthopedics for further evaluation. Discharged home with analgesics. Case was discussed with my ED attending Dr. Watts. Patient dischar ai in stable condition. Undiagnosed new problem with uncertain prognosis? @ -No Drug Therapy requiring intensive monitoring for toxicity (Heparin, Nitro, Insulin, Cardizem)? @ -No Were any procedures done? @ -No Diagnosis/symptom? @ -Left shoulder sprain Acute, or Chronic, or Acute on Chronic? @ -Acute Uncomplicated (without systemic symptoms) or Complicated (systemic symptoms)? @ -Uncomplicated Side effects of treatment? @ -No Exacerbation, Progression, or Severe Exacerbation? @ -No Poses a threat to life or bodily function? How? (Chest pain, [place], [place], pneumonia, PE, COPD, DKA, ARF, appy, cholecystitis, CVA, Diverticulitis, Homicidal, Suicidal, threat to staff... and all critical care pts) @ -No Disposition Clinical Impression: Left shoulder strain Disposition: HOME SELF-CARE Condition: Stable Instructions (If sedation given, give patient instructions): Shoulder Sprain (ED) Additional Instructions: Take Tylenol threes and muscle relaxers as needed for pain. Please return to the Emergency Department if symptoms worsen or any other concerns. Prescriptions: Cyclobenzaprine [Flexeril] 10 mg PO TID PRN #15 tab PRN Reason: Muscle Spasm Lidocaine 5% Patch [Lidoderm 5% Patch] 1 patch TOPICAL DAILY 7 Days #7 patch Is patient prescribed a controlled substance at d/c from ED?: No Referrals: Chente Martinez MD [Primary Care Provider] - 1-2 days Time of Disposition: 13:10
[2024-09-18] MEDS: ACET/COD 300 MG/30 MG STARTER PACK 6 TAB BTL PO STA (13:24)
[2024-09-18 13:33] VITALS: BP 127/76; PULSE 65
== END 2024-09-18 13:33 | disposition home or self-care (01) ==
LOC: EC 10:48
CPT/HCPCS: 96372; 99283

== ENCOUNTER 2024-09-22 19:28 | Emergency (ER) | payer OTHER ==
[2024-09-22 19:43] VITALS: RESP 18; TEMP 98.4
--- NOTE | 2024-09-22 20:08 | ED ---
Upper Extremity HPI - General Chief Complaint: Extremity Injury, Upper Stated Complaint: L Arm Pain Time Seen by Provider: 09/22/24 19:48 Source: patient, RN notes reviewed Mode of arrival: ambulatory - History of Present Illness Initial Comments: This is a 34-year-old female who is presenting to the emergency department for recheck of left shoulder pain. Patient was evaluated approximately 3 days ago for similar complaint. Patient states that pain started about 2 weeks ago and been progressing states that she is having a difficult time sleeping at night due to the pain. She denies known trauma or injury to the shoulder. She denies paresthesias or loss of motor function. Patient attempted to follow-up outpatient with her primary care provider but missed her appointment. She is presenting for pain management. - Related Data Previous Rx's Medication Instructions Recorded Amoxic-Pot Clav 875-125Mg 1 tab PO BID 10 Days #20 tab 04/02/23 [Augmentin 875-125] Dicyclomine [Bentyl] 20 mg PO TID #30 tablet 04/02/23 Ondansetron Odt [Zofran Odt] 4 mg PO Q8HR PRN #10 tab 04/02/23 Ketorolac [Toradol] 10 mg PO Q6HR PRN #12 tab 04/16/23 Amoxic-Pot Clav 875-125Mg 1 tab PO Q12HR 7 Days #14 tab 04/23/24 [Augmentin 875-125] Cephalexin [Keflex] 500 mg PO Q6HR #40 cap 06/04/24 Sulfamethox-Tmp 800-160Mg [Bactrim 1 each PO Q12HR 7 Days #14 tab 06/07/24 Ds] Cyclobenzaprine [Flexeril] 10 mg PO TID PRN #15 tab 09/18/24 Lidocaine 5% Patch [Lidoderm 5% 1 patch TOPICAL DAILY 7 Days #7 09/18/24 Patch] patch predniSONE 50 mg PO DAILY #5 tab 09/22/24 Allergies Allergy/AdvReac Type Severity Reaction Status Date / Time sulfamethoxazole Allergy Rash/Hives Verified 09/22/24 19:43 [From Bactrim] trimethoprim [From Bactrim] Allergy Rash/Hives Verified 09/22/24 19:43 Review of Systems ROS Statement: Those systems with pertinent positive or pertinent negative responses have been documented in the HPI. ROS Other: All systems not noted in ROS Statement are negative. Past Medical History Additional Past Medical History / Comment(s): "tetanus" History of Any Multi-Drug Resistant Organisms: MRSA Date of last positivie culture/infection: august 2021 MDRO Source:: nose Past Surgical History: Cholecystectomy Past Psychological History: No Psychological Hx Reported Smoking Status: Former smoker Past Alcohol Use History: None Reported Past Drug Use History: None Reported General Exam General appearance: alert, in no apparent distress Eye exam: Present: normal appearance, PERRL, EOMI. Absent: scleral icterus, conjunctival injection, periorbital swelling Neck exam: Present: normal inspection. Absent: tenderness, meningismus, lymphadenopathy Respiratory exam: Present: normal lung sounds bilaterally. Absent: respiratory distress, wheezes, rales, rhonchi, stridor Cardiovascular Exam: Present: regular rate, normal rhythm, normal heart sounds. Absent: systolic murmur, diastolic murmur, rubs, gallop, clicks GI/Abdominal exam: Present: soft, normal bowel sounds. Absent: distended, tenderness, guarding, rebound, rigid Left Shoulder Exam: Present: normal inspection, tenderness (with ROM and palpation over the shoulder joint). Absent: swelling, ecchymosis, deformity, crepitus Neuro motor exam: Present: wrist extension intact, thumb opposition intact Vascular: Present: normal capillary refill, radial pulse (2+). Absent: vascular compromise Back exam: Present: normal inspection Neurological exam: Present: alert, oriented X3, CN II-XII intact Course Vital Signs 09/22/24 09/22/24 19:41 21:16 Temperature 98.4 F Pulse Rate 94 85 Respiratory 18 18 Rate Blood Pressure 124/81 128/77 O2 Sat by Pulse 99 99 Oximetry Medical Decision Making - Medical Decision Making Was pt. sent in by a medical professional or institution (, PA, HOME RESTORATION SERVICE SUPERVISOR, urgent care, hospital, or half-way...) When possible be specific @ -No Did you speak to anyone other than the patient for history (EMS, parent, family, police, friend...)? What history was obtained from this source @ -No Did you review nursing and triage notes (agree or disagree)? Why? @ -I reviewed and agree with nursing and triage notes Were old charts reviewed (outside hosp., previous admission, EMS record, old EKG, old radiological studies, urgent care reports/EKG's, half-way records)? Report findings @ -Reviewed patient's previous emergency department visit note where x-ray was completed the left shoulder that revealed no acute osseous abnormality Differential Diagnosis (chest pain, altered mental status, abdominal pain women, abdominal pain men, vaginal bleeding, weakness, fever, dyspnea, syncope, headache, dizziness, GI bleed, back pain, seizure, CVA, palpatations, mental health, musculoskeletal)? @ -Differential Musculoskeletal Muscular strain, contusion, ligament sprain, fracture, arthritis, septic arthritis, bursitis, cellulitis, muscle spasm, nerve compression, DVT, arterial occlusion, herpes zoster, electrolyte abnormality, tumor.... This is not meant to be in all inclusive list EKG interpreted by me (3pts min.). @ -None X-rays interpreted by me (1pt min.). @ -None done CT interpreted by me (1pt min.). @ -None done U/S interpreted by me (1pt. min.). @ -None done What testing was considered but not performed or refused? (CT, X-rays, U/S, labs)? Why? @ -None What meds were considered but not given or refused? Why? @ -None Did you discuss the management of the patient with other professionals (professionals i.e. , PA, HOME RESTORATION SERVICE SUPERVISOR, lab, RT, psych nurse, health social work professor, auto body repairer, teacher, desk officer, onsite case manager)? Give summary @ -No Was smoking cessation discussed for >3mins.? @ -No Was critical care preformed (if so, how long)? @ -No Were there social determinants of health that impacted care today? How? (Homelessness, low income, unemployed, alcoholism, drug addiction, transportation, low edu. Level, literacy, decrease access to med. care, care home, rehab)? @ -No Was there de-escalation of care discussed even if they declined (Discuss DNR or withdrawal of care, Hospice)? DNR status @ -No What co-morbidities impacted this encounter? (DM, HTN, Smoking, COPD, CAD, Cancer, CVA, ARF, Chemo, Hep., AIDS, mental health diagnosis, sleep apnea, morbid obesity)? @ -None Was patient admitted / discharged? Hospital course, mention meds given and route, prescriptions, significant lab abnormalities, going to OR and other pertinent info. @ -Discharge. 34-year-old female with left shoulder nontraumatic pain. On evaluation patient is resting up in no signs acute distress. External evaluation of the shoulder unremarkable. Patient is noted to have range of motion of the shoulder and states that pain exacerbated with range of motion. Patient has pain in the axillary with no palpable enlargement of lymph nodes or overlying skin changes. Patient is neurovascularly intact. Patient provided with dose of Solu-Medrol. Patient was offered Toradol but is declined. Patient is provided with prescription for burst of steroids and provided with Tylenol 3 starter pack and instructed to follow-up outpatient with her primary care provider for further evaluation. Additionally, she is provided with a sling and instructed to wear this as needed for pain relief. All questions answered at bedside and strict return parameters have been discussed with the patient she is verbalized understanding. Case discussed with Dr. Askew Undiagnosed new problem with uncertain prognosis? @ -No Drug Therapy requiring intensive monitoring for toxicity (Heparin, Nitro, Insulin, Cardizem)? @ -No Were any procedures done? @ -No Diagnosis/symptom? @ -Nontraumatic left shoulder pain Acute, or Chronic, or Acute on Chronic? @ -acute Uncomplicated (without systemic symptoms) or Complicated (systemic symptoms)? @ -uncomplicated Side effects of treatment? @ -No Exacerbation, Progression, or Severe Exacerbation? @ -No Poses a threat to life or bodily function? How? (Chest pain, USA, CT, pneumonia, PE, COPD, DKA, ARF, appy, cholecystitis, CVA, Diverticulitis, Homicidal, Suicidal, threat to staff... and all critical care pts) @ -No Disposition Clinical Impression: Shoulder pain Disposition: HOME SELF-CARE Condition: Good Instructions (If sedation given, give patient instructions): Shoulder Sprain (ED) Additional Instructions: Please return to the Emergency Department if symptoms worsen or any other concerns. Recommend that you follow-up with your primary care provider for further evaluation. Use sling as needed for relief. Continue to take Tylenol, Motrin and provided pain medication as needed. Prescriptions: predniSONE 50 mg PO DAILY #5 tab Is patient prescribed a controlled substance at d/c from ED?: No Referrals: Chente Martinez MD [Primary Care Provider] - 1-2 days Time of Disposition: 21:07
[2024-09-22] MEDS: methylPREDNISolone SOD SUCCI 125 MG/2 ML VIAL IM ONE (20:21)
[2024-09-22] MEDS: ACET/COD 300 MG/30 MG STARTER PACK 6 TAB BTL PO STA (21:12)
[2024-09-22 21:18] VITALS: BP 128/77; PULSE 85
== END 2024-09-22 21:16 | disposition home or self-care (01) ==
LOC: EC 19:28
DX: M79.602 Pain in left arm (principal); Z87.891 Personal history of nicotine dependence; Z88.1 Allergy status to other antibiotic agents; Z88.2 Allergy status to sulfonamides; Z90.49 Acquired absence of other specified parts of digestive tract
CPT/HCPCS: 99283; 96372; J2919